=== PATIENT | male | born 1945 | race Caucasian/White ===

== ENCOUNTER 2016-10-15 09:30 | Outpatient (CLI) | payer MEDICARE, OTHER | END 2016-10-15 09:31 | disposition home or self-care (01) | DX: E11.9 Type 2 diabetes mellitus without complications (principal) ==

== ENCOUNTER 2016-10-24 11:40 | Outpatient (CLI) | payer MEDICARE, OTHER | END 2016-10-24 11:41 | disposition home or self-care (01) | DX: E11.9 Type 2 diabetes mellitus without complications (principal); I10 Essential (primary) hypertension; E78.5 Hyperlipidemia, unspecified; K57.92 Diverticulitis of intestine, part unspecified, without perforation or abscess without bleeding; I25.10 Atherosclerotic heart disease of native coronary artery without angina pectoris ==

== ENCOUNTER 2017-04-20 10:26 | Outpatient (CLI) | payer MEDICARE, OTHER ==
[2017-04-20 12:30] LABS: BASOPHILS % (AUTO) 0.4 %; EOSINOPHILS # (AUTO) 0.2 10^3/uL (0.0-0.7); EOSINOPHILS % (AUTO) 2.3 %; HCT - HEMATOCRIT 41.5 % (42.0-52.0); LYMPHOCYTES # (AUTO) 2.3 10^3/uL (1.5-3.5); LYMPHOCYTES % (AUTO) 34.4 %; MEAN CORPUSCULAR HEMOGLOBIN 28.9 pg (27.0-31.0); MEAN CORPUSCULAR HGB CONC 33.7 g/dL (32.0-36.0); MEAN CORPUSCULAR VOLUME 85.9 fL (80.0-94.0); MEAN PLATELET VOLUME 10.1 fL (7.4-11.4); MONOCYTES # (AUTO) 0.9 10^3/uL (0.0-1.0); MONOCYTES % (AUTO) 13.6 %; NEUTROPHILS # (AUTO) 3.3 10^3/uL (1.5-6.6); NEUTROPHILS % (AUTO) 49.3 %; NUCLEATED RED BLOOD CELLS AUTO 0.1 /100WBC; RED BLOOD COUNT 4.83 10^6/uL (4.70-6.10); UNCORRECTED WHITE BLOOD COUNT 6.6 x10^3/uL; WHITE BLOOD COUNT 6.6 x10^3/uL (4.8-10.8)
[2017-04-20 12:58] LABS: ALBUMIN/GLOBULIN RATIO 1.3 (1.0-2.2); BILIRUBIN,TOTAL 0.6 mg/dL (0.2-1.0); BUN - BLOOD UREA NITROGEN 18 mg/dL (6-20); CALCIUM 9.4 mg/dL (8.5-10.3); CARBON DIOXIDE - CO2 22 mmol/L (21-32); CHLORIDE 106 mmol/L (101-111); CHOL/HDL RATIO 4.7 (<5.0); CHOLESTEROL 168 mg/dL; CREATININE 1.1 mg/dL (0.6-1.2); GFR - MDRD 66 (>89); GLUCOSE 132 mg/dL (70-100); HDL CHOLESTEROL 36 mg/dL; LDL/HDL RATIO 2.8 (<3.6); POTASSIUM 4.1 mmol/L (3.5-5.0); SODIUM 136 mmol/L (135-145); TOTAL PROTEIN 7.5 g/dL (6.7-8.2); TRIGLYCERIDES 155 mg/dL; VLDL CHOLESTEROL 31 mg/dL
[2017-04-20 17:44] LABS: HEMOGLOBIN A1C 1.03 g/dL
== END 2017-04-20 10:27 | disposition home or self-care (01) ==
LOC: LAB.WCP 10:26
PROVIDERS: ATTEND Family Medicine
DX: I25.10 Atherosclerotic heart disease of native coronary artery without angina pectoris (principal); E78.5 Hyperlipidemia, unspecified; E11.9 Type 2 diabetes mellitus without complications; I10 Essential (primary) hypertension; H83.09 Labyrinthitis, unspecified ear
CPT/HCPCS: 36415; 80053; 80061; 83036; 85025

== ENCOUNTER 2017-10-01 08:00 | Outpatient (CLI) | payer MEDICARE, OTHER ==
[2017-10-01 13:33] LABS: CREATININE 1.3 mg/dL (0.6-1.2)
== END 2017-10-01 08:01 | disposition home or self-care (01) ==
LOC: LAB.WCP 08:00
PROVIDERS: ATTEND Internal Medicine Gastroenterology
DX: R10.31 Right lower quadrant pain (principal)
CPT/HCPCS: 36415; 82565

== ENCOUNTER 2017-10-02 10:00 | Outpatient (CLI) | payer MEDICARE, OTHER ==
[2017-10-02 13:27] LABS: HB2 TOTAL 14.9 g/dL; HEMOGLOBIN A1C 1.14 g/dL; HEMOGLOBIN A1C % 9.2 % (4.6-6.2)
== END 2017-10-02 10:01 | disposition home or self-care (01) ==
LOC: LAB.WCP 10:00
PROVIDERS: ATTEND Physician Assistant Medical
DX: E11.9 Type 2 diabetes mellitus without complications (principal)
CPT/HCPCS: 36415; 83036

== ENCOUNTER 2018-08-30 08:00 | Outpatient (CLI) | payer MEDICARE, OTHER ==
[2018-08-30 15:09] LABS: BASOPHILS % (AUTO) 0.4 %; EOSINOPHILS # (AUTO) 0.2 10^3/uL (0.0-0.7); EOSINOPHILS % (AUTO) 2.4 %; HGB - HEMOGLOBIN 12.5 g/dL (14.0-18.0); LYMPHOCYTES # (AUTO) 1.8 10^3/uL (1.5-3.5); LYMPHOCYTES % (AUTO) 26.7 %; MEAN CORPUSCULAR HEMOGLOBIN 28.4 pg (27.0-31.0); MEAN CORPUSCULAR HGB CONC 33.7 g/dL (32.0-36.0); MEAN CORPUSCULAR VOLUME 84.1 fL (80.0-94.0); MEAN PLATELET VOLUME 9.6 fL (7.4-11.4); MONOCYTES # (AUTO) 0.7 10^3/uL (0.0-1.0); MONOCYTES % (AUTO) 10.4 %; NEUTROPHILS # (AUTO) 4.1 10^3/uL (1.5-6.6); NEUTROPHILS % (AUTO) 60.1 %; PLT - PLATELET COUNT 262 10^3/uL (130-450); RED BLOOD COUNT 4.41 10^6/uL (4.70-6.10); RED CELL DISTRIBUTION WIDTH 13.9 % (12.0-15.0); WHITE BLOOD COUNT 6.9 x10^3/uL (4.8-10.8)
[2018-08-30 15:13] LABS: ALBUMIN 4.2 g/dL (3.2-5.5); ALBUMIN/GLOBULIN RATIO 1.4 (1.0-2.2); BILIRUBIN,TOTAL 0.5 mg/dL (0.2-1.0); CALCIUM 9.2 mg/dL (8.5-10.3); CREATININE 1.2 mg/dL (0.6-1.2); TOTAL PROTEIN 7.3 g/dL (6.7-8.2)
[2018-08-30 15:20] LABS: HB2 TOTAL 12.7 g/dL; HEMOGLOBIN A1C 0.77 g/dL; HEMOGLOBIN A1C % 7.7 % (4.6-6.2)
== END 2018-08-30 23:59 | disposition home or self-care (01) ==
LOC: LAB.WCP 08:00
PROVIDERS: ATTEND Family Medicine
DX: E11.9 Type 2 diabetes mellitus without complications (principal)
CPT/HCPCS: 36415; 80053; 82043; 83036; 85025

== ENCOUNTER 2018-10-13 08:28 | Outpatient (CLI) | payer MEDICARE, OTHER ==
--- NOTE | 2018-10-13 09:05 | XRAY Report ---
Reason: NECK PX,ACUTE Procedure Date: 10/13/2018 Accession Number: [id number] / [id number] Procedure: WCP - Cervical Spine 2 View CPT Code: FULL RESULT: EXAM: CERVICAL SPINE RADIOGRAPHY EXAM DATE: 10/13/2018 08:42 AM. CLINICAL HISTORY: NECK PX,ACUTE. COMPARISONS: None. TECHNIQUE: 3 views. FINDINGS: Alignment: Reversed cervical lordosis. Minimal anterior listhesis C3 on C4. Alignment otherwise unremarkable. Bones: The cervical vertebral bodies and posterior elements are well seen from the skull base through C7-T1. Mild degenerative vertebral body height loss C5 and C6. Calcification posterior to C5 on the lateral projection may represent an avulsion injury of the spinous process of indeterminate age. Disks: Degenerative disk space narrowing most marked C5-C6 and C6-C7 greater than C4-C5 and C3-C4. Facets: No degenerative disease. Soft Tissues: No prevertebral soft tissue swelling. Status post sternotomy with dehiscent superior sternal suture. IMPRESSION: Multilevel degenerative change cervical spine most marked C5-C6 and C6-C7. Posterior avulsion fracture of a spinous process, likely C5, of uncertain age. Otherwise no potentially acute findings. RADIA
== END 2018-10-13 08:29 | disposition home or self-care (01) ==
LOC: DI.WCP 08:28
PROVIDERS: ATTEND Physician Assistant Medical
DX: M50.322 Other cervical disc degeneration at C5-C6 level (principal)
CPT/HCPCS: 72040

== ENCOUNTER 2018-11-30 08:00 | Outpatient (CLI) | payer MEDICARE, OTHER ==
[2018-11-30 12:56] LABS: HB2 TOTAL 14.9 g/dL; HEMOGLOBIN A1C 0.84 g/dL; HEMOGLOBIN A1C % 7.3 % (4.6-6.2)
[2018-11-30 12:59] LABS: ALBUMIN/GLOBULIN RATIO 1.1 (1.0-2.2); ALKALINE PHOSPHATASE 58 IU/L (42-121); ALT ALANINE AMINOTRANSFERASE 18 IU/L (10-60); AST ASPARTATE AMINOTRANSFERASE 21 IU/L (10-42); BILIRUBIN,TOTAL 0.8 mg/dL (0.2-1.0); BUN - BLOOD UREA NITROGEN 17 mg/dL (6-20); CALCIUM 9.3 mg/dL (8.5-10.3); CARBON DIOXIDE - CO2 25 mmol/L (21-32); CHLORIDE 104 mmol/L (101-111); CHOL/HDL RATIO 3.7 (<5.0); CHOLESTEROL 144 mg/dL; CREATININE 1.2 mg/dL (0.6-1.2); GFR - MDRD 59 (>89); GLUCOSE 138 mg/dL (70-100); HDL CHOLESTEROL 39 mg/dL; LDL CHOLESTEROL,CALCULATED 83 mg/dL; LDL/HDL RATIO 2.1 (<3.6); SODIUM 138 mmol/L (135-145); TOTAL PROTEIN 7.5 g/dL (6.7-8.2); VLDL CHOLESTEROL 22 mg/dL
== END 2018-11-30 23:59 | disposition home or self-care (01) ==
LOC: LAB.WCP 08:00
PROVIDERS: ATTEND Physician Assistant Medical
DX: E11.9 Type 2 diabetes mellitus without complications (principal)
CPT/HCPCS: 36415; 80053; 80061; 83036; 83721

== ENCOUNTER 2019-01-12 11:26 | Outpatient (CLI) | payer MEDICARE, OTHER ==
--- NOTE | 2019-01-12 14:24 | XRAY Report ---
Reason: DEGENERATIVE DISC DISEASE,LUMBAR SPINE,HIP PAIN BI Procedure Date: 01/12/2019 Accession Number: [id number] / [id number] Procedure: XR - Lumbar Spine 2 View CPT Code: FULL RESULT: EXAM: LUMBOSACRAL SPINE RADIOGRAPHY EXAM DATE: 01/12/2019 12:13 PM. CLINICAL HISTORY: Degenerative disk disease, lumbar spine. Bilateral hip pain. COMPARISONS: LUMBAR SPINE 2 VIEW 05/06/2014 5:19 PM. TECHNIQUE: 3 views. FINDINGS: Alignment: Normal. No spondylolisthesis or scoliosis. Bones: Five gcz-jab-ncjbcao lumbar vertebral bodies are present. No fractures or bone lesions. Disks: New moderate degenerative disk space narrowing with mild vacuum disk phenomenon and marginal osteophytosis at L3-L4 compared to the prior exam. Stable degenerative disk space narrowing at L5-S1 with moderate anterior osteophytosis. Moderate osteophytosis without disk space narrowing noted at T11-T12, T12-L1 and L4-L5. Facets: Stable mild facet arthrosis at L4-L5 and L5-S1. Sacroiliac Joints: Unremarkable. Soft Tissues: Normal. The visualized bowel gas pattern is normal. Atherosclerotic deposition within the infrarenal aorta without apparent aneurysmal dilatation. IMPRESSION: Mild interval progression of degenerative disk disease in the lumbar spine as described. No fracture. RADIA
--- NOTE | 2019-01-12 14:24 | XRAY Report ---
Reason: DEGENERATIVE DISC DISEASE,LUMBAR SPINE,HIP PAIN BI Procedure Date: 01/12/2019 Accession Number: [id number] / [id number] Procedure: XR - Hips 2V BILAT CPT Code: FULL RESULT: EXAM: BILATERAL HIP RADIOGRAPHY EXAM DATE: 01/12/2019 12:15 PM. CLINICAL HISTORY: Degenerative disk disease, lumbar spine, hip pain bilaterally. COMPARISON: None. TECHNIQUE: 2 views each. FINDINGS: Bones: Normal. No fractures or bone lesion. Right Hip: Mild asymmetric joint space narrowing. No dislocation or subluxation. No significant osteophytosis. Left Hip: Normal. No dislocation. The hip joint space is preserved. Soft Tissues: Normal. No soft tissue swelling. IMPRESSION: Mild asymmetric joint space narrowing of the right hip compared to the left. No fracture or significant osteophytosis. RADIA
== END 2019-01-12 11:27 | disposition home or self-care (01) ==
LOC: DI 11:26
PROVIDERS: ATTEND Physician Assistant Medical
DX: M51.36 Other intervertebral disc degeneration, lumbar region (principal); M51.37 Other intervertebral disc degeneration, lumbosacral region; M47.9 Spondylosis, unspecified; M16.11 Unilateral primary osteoarthritis, right hip; M25.552 Pain in left hip
CPT/HCPCS: 72100; 73521

== ENCOUNTER 2019-02-10 09:11 | Outpatient (CLI) | payer MEDICARE, OTHER ==
[2019-02-10 14:34] LABS: BUN - BLOOD UREA NITROGEN 22 mg/dL (6-20); CALCIUM 9.1 mg/dL (8.5-10.3); CARBON DIOXIDE - CO2 20 mmol/L (21-32); CHLORIDE 107 mmol/L (101-111); CREATININE 1.2 mg/dL (0.6-1.2); GFR - MDRD 59 (>89); GLUCOSE 154 mg/dL (70-100); SODIUM 138 mmol/L (135-145); URIC ACID 6.7 mg/dL (2.6-7.2)
[2019-02-10 14:43] LABS: RHEUMATOID FACTOR NEGATIVE (Negative)
[2019-02-10 14:59] LABS: CRP - C-REACTIVE PROTEIN < 1.0 mg/dL (0-1.0)
[2019-02-12 12:51] LABS: ANA SCREEN NEGATIVE (NEGATIVE)
== END 2019-02-10 09:12 | disposition home or self-care (01) ==
LOC: LAB.WCP 09:11
PROVIDERS: ATTEND Physician Assistant Medical
DX: M25.50 Pain in unspecified joint (principal)
CPT/HCPCS: 36415; 80048; 84550; 85651; 86038; 86140; 86430

== ENCOUNTER 2019-03-11 11:40 | Outpatient (CLI) | payer MEDICARE, OTHER ==
[2019-03-11 19:03] LABS: CALCIUM 9.4 mg/dL (8.5-10.3)
[2019-03-11 20:03] LABS: HB2 TOTAL 14.6 g/dL; HEMOGLOBIN A1C 0.84 g/dL; HEMOGLOBIN A1C % 7.4 % (4.6-6.2)
== END 2019-03-11 23:59 | disposition home or self-care (01) ==
LOC: LAB.WCP 11:40
PROVIDERS: ATTEND Physician Assistant Medical
DX: E11.9 Type 2 diabetes mellitus without complications (principal)
CPT/HCPCS: 36415; 80048; 83036

== ENCOUNTER 2019-03-28 13:07 | Outpatient (CLI) | payer MEDICARE, OTHER | END 2019-03-28 13:08 | disposition short-term general hospital (02) | LOC: EMS 13:07 | PROVIDERS: ATTEND Surgery | DX: M25.552 Pain in left hip (principal); R11.2 Nausea with vomiting, unspecified | CPT/HCPCS: A0425; A0427; A0888 ==

== ENCOUNTER 2019-04-29 15:43 | Outpatient (CLI) | payer MEDICARE, OTHER | END 2019-04-29 15:44 | disposition short-term general hospital (02) | LOC: EMS 15:43 | PROVIDERS: ATTEND Surgery | DX: M54.5 Low back pain (principal); R53.1 Weakness | CPT/HCPCS: A0425; A0429 ==

== ENCOUNTER 2019-05-30 10:30 | Outpatient (CLI) | payer MEDICARE, OTHER ==
[2019-05-30 12:57] LABS: ALBUMIN 4.2 g/dL (3.2-5.5); ALBUMIN/GLOBULIN RATIO 1.3 (1.0-2.2); ALKALINE PHOSPHATASE 67 IU/L (42-121); ALT ALANINE AMINOTRANSFERASE 17 IU/L (10-60); AST ASPARTATE AMINOTRANSFERASE 22 IU/L (10-42); BILIRUBIN,TOTAL 0.6 mg/dL (0.2-1.0); BUN - BLOOD UREA NITROGEN 17 mg/dL (6-20); CALCIUM 9.4 mg/dL (8.5-10.3); CARBON DIOXIDE - CO2 24 mmol/L (21-32); CHLORIDE 104 mmol/L (101-111); CHOL/HDL RATIO 4.2 (<5.0); CHOLESTEROL 178 mg/dL; GFR - MDRD 73 (>89); GLUCOSE 237 mg/dL (70-100); HDL CHOLESTEROL 42 mg/dL; LDL CHOLESTEROL,CALCULATED 105 mg/dL; LDL/HDL RATIO 2.5 (<3.6); SODIUM 136 mmol/L (135-145); TOTAL PROTEIN 7.4 g/dL (6.7-8.2); VLDL CHOLESTEROL 31 mg/dL
[2019-05-30 13:34] LABS: HB2 TOTAL 13.3 g/dL; HEMOGLOBIN A1C 1.01 g/dL; HEMOGLOBIN A1C % 9.1 % (4.6-6.2)
== END 2019-05-30 23:59 | disposition home or self-care (01) ==
LOC: LAB.WCP 10:30
PROVIDERS: ATTEND Physician Assistant Medical
DX: E11.9 Type 2 diabetes mellitus without complications (principal)
CPT/HCPCS: 36415; 80053; 80061; 83036; 83721

== ENCOUNTER 2019-09-26 12:49 | Outpatient (CLI) | payer MEDICARE, OTHER | END 2019-09-26 12:50 | disposition home or self-care (01) | LOC: RT 12:49 | PROVIDERS: ATTEND Orthopaedic Surgery | DX: Z01.818 Encounter for other preprocedural examination (principal) | CPT/HCPCS: 93005 ==

== ENCOUNTER 2019-09-28 08:00 | Outpatient (CLI) | payer MEDICARE, OTHER ==
[2019-09-28 19:43] LABS: HB2 TOTAL 13.8 g/dL; HEMOGLOBIN A1C 0.97 g/dL; HEMOGLOBIN A1C % 8.6 % (4.6-6.2)
[2019-09-28 20:22] LABS: CALCIUM 8.8 mg/dL (8.5-10.3); CREATININE 1.1 mg/dL (0.6-1.2)
== END 2019-09-28 23:59 | disposition home or self-care (01) ==
LOC: LAB.WCP 08:00
PROVIDERS: ATTEND Physician Assistant Medical
DX: E11.9 Type 2 diabetes mellitus without complications (principal); Z12.5 Encounter for screening for malignant neoplasm of prostate
CPT/HCPCS: 36415; 80048; 83036; G0103; 84153

== ENCOUNTER 2019-12-27 08:00 | Outpatient (CLI) | payer MEDICARE, OTHER ==
[2019-12-27 13:39] LABS: ALBUMIN 4.2 g/dL (3.2-5.5); ALBUMIN/GLOBULIN RATIO 1.4 (1.0-2.2); ALKALINE PHOSPHATASE 64 IU/L (42-121); ALT ALANINE AMINOTRANSFERASE 24 IU/L (10-60); AST ASPARTATE AMINOTRANSFERASE 23 IU/L (10-42); BILIRUBIN,TOTAL 0.8 mg/dL (0.2-1.0); BUN - BLOOD UREA NITROGEN 12 mg/dL (6-20); CALCIUM 9.1 mg/dL (8.5-10.3); CARBON DIOXIDE - CO2 24 mmol/L (21-32); CHLORIDE 107 mmol/L (101-111); CHOL/HDL RATIO 5.5 (<5.0); CHOLESTEROL 191 mg/dL; GLUCOSE 123 mg/dL (70-100); HDL CHOLESTEROL 35 mg/dL; LDL CHOLESTEROL,CALCULATED 129 mg/dL; LDL/HDL RATIO 3.7 (<3.6); SODIUM 138 mmol/L (135-145); TOTAL PROTEIN 7.2 g/dL (6.7-8.2); VLDL CHOLESTEROL 27 mg/dL
[2019-12-27 13:48] LABS: HB2 TOTAL 15.2 g/dL; HEMOGLOBIN A1C 0.98 g/dL
== END 2019-12-27 23:59 | disposition home or self-care (01) ==
LOC: LAB.WCP 08:00
PROVIDERS: ATTEND Physician Assistant Medical
DX: E11.9 Type 2 diabetes mellitus without complications (principal)
CPT/HCPCS: 36415; 80053; 80061; 83036; 83721

== ENCOUNTER 2020-02-24 09:54 | Outpatient (CLI) | payer MEDICARE, OTHER ==
[2020-02-24] MEDS ORDERED: IOVERSOL 320 100 ML VIAL IVP ONE ×2 (10:01→11:36)
[2020-02-24] MEDS ORDERED: IOVERSOL 320 50 ML VIAL ONE (10:01)
[2020-02-24 10:24] LABS: ALBUMIN 4.2 g/dL (3.2-5.5); ALBUMIN/GLOBULIN RATIO 1.3 (1.0-2.2); BILIRUBIN,TOTAL 0.8 mg/dL (0.2-1.0); CALCIUM 9.2 mg/dL (8.5-10.3); CREATININE 1.1 mg/dL (0.6-1.2); TOTAL PROTEIN 7.5 g/dL (6.7-8.2)
[2020-02-24] MEDS ORDERED: IOVERSOL 320 50 ML VIAL PO ONE (11:36)
--- NOTE | 2020-02-24 12:51 | CT Report ---
PROCEDURE: Abdomen/Pelvis W INDICATIONS: ABDOMINAL PAIN, RLQ CONTRAST: IV CONTRAST: Optiray 320 ml: 100 PO CONTRAST: Optiray 320 ml50 TECHNIQUE: After the administration of oral and intravenous contrast, 5 mm thick sections acquired from the diap hragms to the symphysis. 5 mm thick coronal and sagittal reformats were acquired. For radiation dos e reduction, the following was used: automated exposure control, adjustment of mA and/or kV accordin g to patient size. COMPARISON: None. FINDINGS: Image quality: Excellent. ABDOMEN: Lung bases: Lung bases are clear. Heart size is normal. Solid organs: Hepatic steatosis. No focal hepatic lesion identified. Spleen unremarkable. Gallbladder negative. Biliary system is non dilated. Pancreas enhances normally. No adrenal nodules. Kidneys demonstrate normal size and enhancement, without hydronephrosis. Bilateral renal cortical scarring. Peritoneum and bowel: Bowel loops demonstrate normal wall thickness and caliber. No free fluid or a ir. The appendix is not clearly identified however no suspicious inflammatory changes in the right l ower quadrant. Nodes and vessels: No retroperitoneal or mesenteric adenopathy by size criteria. Aorta and inferior vena cava are normal in size. Miscellaneous: No ventral hernias. PELVIS: Genitourinary: Bladder wall thickness is normal. Tiny bilateral fat-containing inguinal hernias. Bones: No suspicious bony lesions. No vertebral body compression fractures. IMPRESSION: No acute process identified. The appendix is not clearly identified however no suspicious inflammator y changes in the right lower quadrant. Hepatic steatosis Additional chronic and incidental findings as above. Reviewed by: Marc Woody MD on 02/24/2020 12:50 PM PDT Approved by: Marc Woody MD on 02/24/2020 12:50 PM PDT Station ID: [id number]
== END 2020-02-24 09:55 | disposition home or self-care (01) ==
LOC: DI 09:54
PROVIDERS: ATTEND Physician Assistant Medical
DX: R10.31 Right lower quadrant pain (principal); K76.0 Fatty (change of) liver, not elsewhere classified
CPT/HCPCS: 36415; 74177; 80053; Q9967

== ENCOUNTER 2020-07-03 08:00 | Outpatient (CLI) | payer MEDICARE, OTHER ==
[2020-07-03 18:04] LABS: ALBUMIN 4.4 g/dL (3.2-5.5); ALBUMIN/GLOBULIN RATIO 1.4 (1.0-2.2); BILIRUBIN,TOTAL 0.9 mg/dL (0.2-1.0); CALCIUM 9.6 mg/dL (8.5-10.3); CREATININE 1.1 mg/dL (0.6-1.2); TOTAL PROTEIN 7.6 g/dL (6.7-8.2)
[2020-07-03 20:11] LABS: HEMOGLOBIN A1c% 8.2 % (4.27-6.07)
== END 2020-07-03 23:59 | disposition home or self-care (01) ==
LOC: LAB.WCP 08:00
PROVIDERS: ATTEND Physician Assistant Medical
DX: E11.9 Type 2 diabetes mellitus without complications (principal)
CPT/HCPCS: 36415; 80053; 83036

== ENCOUNTER 2020-08-06 09:36 | Outpatient (CLI) | payer MEDICARE, OTHER ==
--- NOTE | 2020-08-06 16:31 | XRAY Report ---
PROCEDURE: Knee Standing BILAT INDICATIONS: OSTEOARTHRITIS OF THE KNEE TECHNIQUE: 3 views of the right knee, and 3 views of the left knee. COMPARISON: None. FINDINGS: Bones: No acute fractures or dislocations. There is severe bilateral medial femorotibial compartment narrowing. There are small intercondylar osteophytes, slightly more severe on the right than on the left. No suspicious bony lesions. Soft tissues: No knee joint effusions. No suspicious soft tissue calcification. There are scattere d soft tissue vascular calcifications. Surgical clips are present along the medial aspect of the righ t lower extremity. IMPRESSION: 1. Moderate to severe bilateral knee osteoarthritis. 2. Arterial atherosclerosis. Reviewed by: Samira Pike MD on 08/06/2020 4:30 PM PST Approved by: Samira Pike MD on 08/06/2020 4:30 PM PST Station ID: [id number]
== END 2020-08-06 23:59 | disposition home or self-care (01) ==
LOC: DI.N 09:36
PROVIDERS: ATTEND Physician Assistant
DX: M17.0 Bilateral primary osteoarthritis of knee (principal)

== ENCOUNTER 2020-09-13 09:49 | Outpatient (CLI) | payer MEDICARE, OTHER ==
[2020-09-13 11:54] LABS: BASOPHILS % (AUTO) 0.4 %; EOSINOPHILS # (AUTO) 0.1 10^3/uL (0.0-0.7); EOSINOPHILS % (AUTO) 1.7 %; HGB - HEMOGLOBIN 15.6 g/dL (14.0-18.0); LYMPHOCYTES # (AUTO) 2.3 10^3/uL (1.5-3.5); LYMPHOCYTES % (AUTO) 32.8 %; MEAN CORPUSCULAR HEMOGLOBIN 29.6 pg (27.0-31.0); MEAN CORPUSCULAR HGB CONC 32.6 g/dL (32.0-36.0); MEAN CORPUSCULAR VOLUME 90.9 fL (80.0-94.0); MEAN PLATELET VOLUME 11.5 fL (7.4-11.4); MONOCYTES # (AUTO) 0.8 10^3/uL (0.0-1.0); NEUTROPHILS # (AUTO) 3.7 10^3/uL (1.5-6.6); PLT - PLATELET COUNT 230 10^3/uL (130-450); RED BLOOD COUNT 5.27 10^6/uL (4.70-6.10); RED CELL DISTRIBUTION WIDTH 12.9 % (12.0-15.0)
[2020-09-13 12:24] LABS: HEMOGLOBIN A1c% 8.3 % (4.27-6.07)
[2020-09-13 12:36] LABS: CREATININE,URINE 134.5 mg/dL; MICROALBUM/CREATININE RATIO,UR 1.5 ug/mg (<30.0); MICROALBUMIN,URINE 0.2 mg/dL (0-300.0)
[2020-09-13 12:43] LABS: ALBUMIN 4.3 g/dL (3.2-5.5); ALBUMIN/GLOBULIN RATIO 1.4 (1.0-2.2); ALKALINE PHOSPHATASE 58 IU/L (42-121); ALT ALANINE AMINOTRANSFERASE 30 IU/L (10-60); AST ASPARTATE AMINOTRANSFERASE 25 IU/L (10-42); BILIRUBIN,TOTAL 0.9 mg/dL (0.2-1.0); BUN - BLOOD UREA NITROGEN 15 mg/dL (6-20); CALCIUM 9.3 mg/dL (8.5-10.3); CARBON DIOXIDE - CO2 23 mmol/L (21-32); CHLORIDE 106 mmol/L (101-111); CHOL/HDL RATIO 5.1 (<5.0); CHOLESTEROL 198 mg/dL; CREATININE 1.1 mg/dL (0.6-1.2); GLUCOSE 121 mg/dL (70-100); HDL CHOLESTEROL 39 mg/dL; LDL CHOLESTEROL,CALCULATED 133 mg/dL; LDL/HDL RATIO 3.4 (<3.6); SODIUM 138 mmol/L (135-145); TOTAL PROTEIN 7.3 g/dL (6.7-8.2); VLDL CHOLESTEROL 26 mg/dL
== END 2020-09-13 23:59 | disposition home or self-care (01) ==
LOC: LAB.WCP 09:49
PROVIDERS: ATTEND Physician Assistant Medical
DX: E11.9 Type 2 diabetes mellitus without complications (principal); D64.9 Anemia, unspecified
CPT/HCPCS: 36415; 80053; 80061; 82043; 82570; 83036; 83721; 85025

== ENCOUNTER 2021-01-02 08:00 | Outpatient (CLI) | payer MEDICARE, OTHER ==
[2021-01-02 18:23] LABS: CALCIUM 9.7 mg/dL (8.5-10.3); CREATININE 1.2 mg/dL (0.6-1.2); POTASSIUM 4.4 mmol/L (3.5-5.0)
[2021-01-02 19:20] LABS: ESTIMATED AVERAGE GLUCOSE 183 mg/dL (70-100)
== END 2021-01-02 23:59 | disposition home or self-care (01) ==
LOC: LAB.WCP 08:00
PROVIDERS: ATTEND Physician Assistant Medical
DX: E11.9 Type 2 diabetes mellitus without complications (principal)
CPT/HCPCS: 36415; 80048; 83036

== ENCOUNTER 2021-03-18 09:40 | Outpatient (CLI) | payer MEDICARE, OTHER ==
--- NOTE | 2021-03-18 10:09 | XRAY Report ---
PROCEDURE: Ankle 3 View LT INDICATIONS: ANKLE PAIN TECHNIQUE: 3 views of the ankle were acquired. COMPARISON: None FINDINGS: Bones: No fractures or dislocations. Ankle mortise is normally aligned. Well-defined plantar calcan eal enthesophytes are seen. Mild osteoarthritic changes are seen in tibiotalar and subtalar joints. No suspicious bony lesions. Soft tissues: No tibiotalar joint effusion. Achilles tendon appears normal. Vascular calcification s are noted in anterior and posterior aspect of ankle joint soft tissue. IMPRESSION: No ankle fracture or dislocation. Osteoarthritis in ankle joints. Well-defined plantar c alcaneal enthesophyte. Reviewed by: Melvin Abrams MD on 03/18/2021 10:08 AM PDT Approved by: Melvin Abrams MD on 03/18/2021 10:08 AM PDT Station ID: [id number]
== END 2021-03-18 09:41 | disposition home or self-care (01) ==
LOC: DI 09:40
PROVIDERS: ATTEND Podiatrist
DX: M25.572 Pain in left ankle and joints of left foot (principal); M19.072 Primary osteoarthritis, left ankle and foot; M77.32 Calcaneal spur, left foot

== ENCOUNTER 2021-04-08 10:36 | Outpatient (CLI) | payer MEDICARE, OTHER ==
[2021-04-08 18:45] LABS: ALBUMIN 4.6 g/dL (3.2-5.5); ALBUMIN/GLOBULIN RATIO 1.6 (1.0-2.2); ALKALINE PHOSPHATASE 54 IU/L (42-121); ALT ALANINE AMINOTRANSFERASE 23 IU/L (10-60); AST ASPARTATE AMINOTRANSFERASE 22 IU/L (10-42); BILIRUBIN,TOTAL 0.9 mg/dL (0.2-1.0); BUN - BLOOD UREA NITROGEN 16 mg/dL (6-20); CALCIUM 9.5 mg/dL (8.5-10.3); CARBON DIOXIDE - CO2 23 mmol/L (21-32); CHLORIDE 106 mmol/L (101-111); CHOL/HDL RATIO 4.9 (<5.0); CHOLESTEROL 187 mg/dL; CREATININE 1.1 mg/dL (0.6-1.2); GFR - MDRD 65 (>89); GLUCOSE 153 mg/dL (70-100); HDL CHOLESTEROL 38 mg/dL; LDL CHOLESTEROL,CALCULATED 122 mg/dL; LDL/HDL RATIO 3.2 (<3.6); POTASSIUM 4.4 mmol/L (3.5-5.0); SODIUM 138 mmol/L (135-145); TOTAL PROTEIN 7.4 g/dL (6.7-8.2); TRIGLYCERIDES 135 mg/dL; VLDL CHOLESTEROL 27 mg/dL
[2021-04-08 20:03] LABS: ESTIMATED AVERAGE GLUCOSE 171 mg/dL (70-100); HEMOGLOBIN A1c% 7.6 % (4.27-6.07)
== END 2021-04-08 23:59 | disposition home or self-care (01) ==
LOC: LAB.WCP 10:36
PROVIDERS: ATTEND Physician Assistant Medical
DX: E11.9 Type 2 diabetes mellitus without complications (principal)
CPT/HCPCS: 36415; 80053; 80061; 83036; 83721

== ENCOUNTER 2021-07-12 08:49 | Outpatient (CLI) | payer MEDICARE, OTHER ==
[2021-07-12] MEDS ORDERED: IOVERSOL 320 50 ML VIAL ONE (09:10)
[2021-07-12] MEDS ORDERED: IOVERSOL 320 100 ML VIAL IVP ONE ×2 (09:11→10:23)
[2021-07-12 09:29] LABS: ALBUMIN 4.8 g/dL (3.2-5.5); ALBUMIN/GLOBULIN RATIO 1.7 (1.0-2.2); ALKALINE PHOSPHATASE 48 IU/L (42-121); ALT ALANINE AMINOTRANSFERASE 23 IU/L (10-60); AST ASPARTATE AMINOTRANSFERASE 20 IU/L (10-42); BILIRUBIN,TOTAL 1.2 mg/dL (0.2-1.0); BUN - BLOOD UREA NITROGEN 17 mg/dL (6-20); CALCIUM 9.9 mg/dL (8.5-10.3); CARBON DIOXIDE - CO2 25 mmol/L (21-32); CHLORIDE 102 mmol/L (101-111); CHOL/HDL RATIO 4.4 (<5.0); CHOLESTEROL 177 mg/dL; CREATININE 1.2 mg/dL (0.6-1.2); GFR - MDRD 59 (>89); GLUCOSE 127 mg/dL (70-100); HDL CHOLESTEROL 40 mg/dL; LDL CHOLESTEROL,CALCULATED 114 mg/dL; LDL/HDL RATIO 2.9 (<3.6); POTASSIUM 4.8 mmol/L (3.5-5.0); SODIUM 137 mmol/L (135-145); TOTAL PROTEIN 7.7 g/dL (6.7-8.2); TRIGLYCERIDES 117 mg/dL; VLDL CHOLESTEROL 23 mg/dL
[2021-07-12] MEDS ORDERED: IOVERSOL 320 50 ML VIAL PO ONE (10:24)
--- NOTE | 2021-07-12 12:52 | CT Report ---
PROCEDURE: Abdomen/Pelvis W INDICATIONS: LOWER ABDOMINAL PAIN, ADENOMATOUS COLONIC POLY CONTRAST: IV CONTRAST: Optiray 320 ml: 100 PO CONTRAST: Optiray 320 ml50 TECHNIQUE: After the administration of contrast, 5 mm thick sections acquired from the diaphragms to the sym physis. 5 mm thick coronal and sagittal reformats were acquired. For radiation dose reduction, the following was used: automated exposure control, adjustment of mA and/or kV according to patient size . COMPARISON: None. FINDINGS: Image quality: Excellent. ABDOMEN: Lung bases: Lung bases are clear. Heart size is normal. Solid organs: Liver and spleen are normal in size and enhancement. Hepatic density is slightly decr eased consistent with hepatic steatosis. Gallbladder is normal Biliary system is non dilated. Pancr eas enhances normally. No adrenal nodules. Kidneys demonstrate normal size and enhancement, without hydronephrosis. The kidneys are mildly lobulated. Peritoneum and bowel: Bowel loops demonstrate normal wall thickness and caliber. No free fluid or a ir. The appendix is not distinct visualized, however there are no CT findings to suggest acute append icitis. Nodes and vessels: No retroperitoneal or mesenteric adenopathy by size criteria. Aorta and inferior vena cava are normal in size. Miscellaneous: No ventral hernias. PELVIS: Genitourinary: Bladder wall thickness is normal. Miscellaneous: No inguinal hernias or adenopathy. Bones: No suspicious bony lesions. No vertebral body compression fractures. IMPRESSION: 1. No acute abdominal or pelvic abnormality. 2. Mild hepatic steatosis. Reviewed by: Duc Dillon on 07/12/2021 12:50 PM PST Approved by: Duc Dillon on 07/12/2021 12:50 PM PST Station ID: [id number]
[2021-07-12 15:38] LABS: ESTIMATED AVERAGE GLUCOSE 180 mg/dL (70-100); HEMOGLOBIN A1c% 7.9 % (4.27-6.07)
== END 2021-07-12 08:50 | disposition home or self-care (01) ==
LOC: DI 08:49
PROVIDERS: ATTEND Surgery
DX: R10.30 Lower abdominal pain, unspecified (principal); E11.9 Type 2 diabetes mellitus without complications; K76.0 Fatty (change of) liver, not elsewhere classified
CPT/HCPCS: 36415; 74177; 80053; 80061; 83036; Q9967; 83721

== ENCOUNTER 2021-09-30 08:00 | Outpatient (CLI) | payer MEDICARE, OTHER ==
[2021-10-01 19:03] LABS: CREATININE,URINE 177.4 mg/dL; MICROALBUM/CREATININE RATIO,UR 11.3 ug/mg (<30.0)
== END 2021-09-30 23:59 ==
LOC: LAB.R 08:00
PROVIDERS: ATTEND Physician Assistant Medical
DX: E11.9 Type 2 diabetes mellitus without complications (principal)
CPT/HCPCS: 82043; 82570

== ENCOUNTER 2021-09-30 11:12 | Outpatient (CLI) | payer MEDICARE, OTHER ==
[2021-09-30 18:20] LABS: CALCIUM 9.4 mg/dL (8.5-10.3); CREATININE 1.1 mg/dL (0.6-1.2); POTASSIUM 4.5 mmol/L (3.5-5.0)
[2021-09-30 18:31] LABS: ESTIMATED AVERAGE GLUCOSE 177 mg/dL (70-100); HEMOGLOBIN A1c% 7.8 % (4.27-6.07)
== END 2021-09-30 23:59 | disposition home or self-care (01) ==
LOC: LAB.WCP 11:12
PROVIDERS: ATTEND Physician Assistant Medical
DX: E11.9 Type 2 diabetes mellitus without complications (principal); R10.30 Lower abdominal pain, unspecified; D12.6 Benign neoplasm of colon, unspecified
CPT/HCPCS: 36415; 80048; 82043; 82570; 83036

== ENCOUNTER 2021-10-04 13:25 | Emergency (ER) | payer MEDICARE, OTHER ==
[2021-10-04 13:47] LABS: BASOPHILS % (AUTO) 0.3 %; EOSINOPHILS # (AUTO) 0.1 10^3/uL (0.0-0.7); EOSINOPHILS % (AUTO) 1.5 %; HCT - HEMATOCRIT 43.8 % (42.0-52.0); HGB - HEMOGLOBIN 14.8 g/dL (14.0-18.0); LYMPHOCYTES % (AUTO) 31.5 %; MEAN CORPUSCULAR HEMOGLOBIN 30.9 pg (27.0-31.0); MEAN CORPUSCULAR HGB CONC 33.8 g/dL (32.0-36.0); MEAN CORPUSCULAR VOLUME 91.4 fL (80.0-94.0); MEAN PLATELET VOLUME 10.8 fL (7.4-11.4); MONOCYTES % (AUTO) 10.3 %; NEUTROPHILS # (AUTO) 5.3 10^3/uL (1.5-6.6); NEUTROPHILS % (AUTO) 55.9 %; PLT - PLATELET COUNT 261 10^3/uL (130-450); RED BLOOD COUNT 4.79 10^6/uL (4.70-6.10); RED CELL DISTRIBUTION WIDTH 12.9 % (12.0-15.0); WHITE BLOOD COUNT 9.5 x10^3/uL (4.8-10.8)
[2021-10-04 14:02] LABS: ALBUMIN 4.5 g/dL (3.2-5.5); ALBUMIN/GLOBULIN RATIO 1.3 (1.0-2.2); BILIRUBIN,TOTAL 0.7 mg/dL (0.2-1.0); CALCIUM 9.4 mg/dL (8.5-10.3); CREATININE 1.2 mg/dL (0.6-1.2)
[2021-10-04 14:46] LABS: BILIRUBIN,URINE NEGATIVE (NEGATIVE); GLUCOSE, URINE (UA) NEGATIVE (NEGATIVE); KETONES,URINE (UA) NEGATIVE (NEGATIVE); LEUKOCYTE ESTERASE, URINE NEGATIVE (NEGATIVE); NITRITE,URINE NEGATIVE (NEGATIVE); OCCULT BLOOD,URINE NEGATIVE (NEGATIVE); PH,URINE 5.5 PH (5.0-7.5); PROTEIN,URINE NEGATIVE (NEGATIVE); UROBILINOGEN,URINE 0.2 (NORMAL) E.U./dL (NORMAL)
[2021-10-04 14:51] LABS: CLARITY,URINE CLEAR (CLEAR)
--- NOTE | 2021-10-04 15:10 | ED Physician Documentation ---
History of Present Illness - Stated complaint Stated Complaint: ABD PX - Chief complaint Chief Complaint: Abd Pain - Additonal information Additional information: Absolutely 76-year-old male presents emergency department for evaluation of abo ut 1 month intermittent left flank pain that radiates to his lower abdomen. It is intermittent. But over the last 2 to 3 days has gotten steadily worse. Denies any nausea or vomiting. Denies any bloody stools but does have some intermittent constipated episodes. Also reports that he has to strain to urinate though he does not have dysuria. Has a history of a partial small bowel resection related to a polyp seen on a colonoscopy many years ago. He is scheduled for colonoscopy on the of this month. Review of Systems Constitutional: reports: Reviewed and negative Nose: reports: Reviewed and negative Throat: reports: Reviewed and negative Cardiac: reports: Reviewed and negative Respiratory: reports: Reviewed and negative GI: reports: Abdominal Pain, Constipation. denies: Nausea, Vomiting : reports: Other (occassional difficulty voiding). denies: Dysuria, Frequency Skin: reports: Reviewed and negative Musculoskeletal: reports: Reviewed and negative Neurologic: reports: Reviewed and negative PD PAST MEDICAL HISTORY - Past Medical History Cardiovascular: Hypertension, High cholesterol, Coronary artery disease, [place], Other Respiratory: None Endocrine/Autoimmune: Type 2 diabetes GI: GERD : Kidney stones, Other HEENT: None Psych: None Musculoskeletal: Osteoarthritis, Other Derm: None - Past Surgical History Past Surgical History: Yes General: Colonoscopy Cardiovascular: CABG - Present Medications Home Medications: Ambulatory Orders Medication Instructions Recorded Confirmed Aspirin 81 mg PO DAILY 12/02/13 05/06/18 Clopidogrel [Plavix] 75 mg PO ONCE 12/02/13 05/06/18 Fenofibrate [Lofibra] 160 mg PO DAILY 12/02/13 05/06/18 Gabapentin [Neurontin] 600 mg PO BID 12/02/13 05/06/18 Insulin Glargine,Hum.rec.anlog 50 units SUBQ DAILY 12/02/13 05/06/18 [Lantus Solostar] Metoprolol Succinate 50 mg PO DAILY 12/02/13 05/06/18 Nitroglycerin [Nitrostat] 0.4 mg SL ONCE 12/02/13 05/06/18 lisinopriL [Prinivil] 2.5 mg PO DAILY 12/02/13 05/06/18 Cetirizine [ZyrTEC] 10 mg PO DAILY 05/06/18 05/06/18 Insulin Lispro [Humalog Kwikpen 0 - 25 unit SUBQ TIDWM 05/06/18 05/06/18 U-100] Isosorbide Mononitrate ER [Imdur] 15 mg PO DAILY 05/06/18 05/06/18 Meloxicam 15 mg PO PRN PRN 05/06/18 05/06/18 Ondansetron Odt [Zofran] 4 mg TL Q6H PRN 05/06/18 05/06/18 Pantoprazole Sodium 20 mg PO DAILY 05/06/18 05/06/18 - Allergies Allergies/Adverse Reactions: Allergies Allergy/AdvReac Type Severity Reaction Status Date / Time Pzyriuk-WIY-IoI Reductase Allergy Mild Rash Verified 10/04/21 13:34 Inhibitor [Zlrkmpf-Myl-Bzu Reductase Inhibitor] metformin AdvReac Nausea Verified 10/04/21 13:34 niacin AdvReac body wide Verified 10/04/21 13:34 pain - Social History Does the pt smoke?: No Smoking Status: Never smoker Does the pt drink ETOH?: No Does the pt have substance abuse?: No - Immunizations Immunizations are current?: Yes PD ED PE EXPANDED - General General: Alert, Well developed/nourished - Cardiac Cardiac: Regular Rate, Radial strong equal, Cap refill < 2 sec - Respiratory Respiratory: Clear to ausultation iveth. No: Distress, Labored - Abdomen Abdomen: Normal Bowel sounds, Tender to palpation (tenderness left flank and LLQ; no guarding or rebound) - Back Back: Normal exam. No: Vertebral tenderness, Soft tissue tenderness - Derm Derm: Normal color, Warm and dry. No: Rash - Extremities Extremities: Normal. No: Deformity, Tenderness - Neuro Neuro: Alert and Oriented X 3, CNII-XII intact - GCS Eye Opening: Spontaneous Verbal: Oriented Results - Vitals Vitals: Vital Signs - 24 hr 10/04/21 10/04/21 13:31 15:34 Temperature 36.8 C 36.1 C L Heart Rate 80 70 Respiratory 18 16 Rate Blood Pressure 150/90 H 128/76 O2 Saturation 99 95 Oxygen O2 Source Room air - Labs Labs: Laboratory Tests 10/04/21 10/04/21 10/04/21 13:43 13:43 13:45 WBC 9.5 RBC 4.79 Hgb 14.8 Hct 43.8 MCV 91.4 MCH 30.9 MCHC 33.8 RDW 12.9 Plt Count 261 MPV 10.8 Neut # (Auto) 5.3 Lymph # (Auto) 3.0 Mcdonough # (Auto) 1.0 Eos # (Auto) 0.1 Baso # (Auto) 0.0 Absolute Nucleated RBC 0.00 Nucleated RBC % 0.0 Sodium 136 Potassium 4.0 Chloride 101 Carbon Dioxide 26 Anion Gap 9.0 BUN 16 Creatinine 1.2 Estimated GFR (MDRD) 59 L Glucose 127 H Calcium 9.4 Total Bilirubin 0.7 AST 21 ALT 22 Alkaline Phosphatase 51 Total Protein 8.0 Albumin 4.5 Globulin 3.5 Albumin/Globulin Ratio 1.3 Lipase 20 L Urine Color YELLOW Urine Clarity CLEAR Urine pH 5.5 Ur Specific [place] 1.025 Urine Protein NEGATIVE Urine Glucose (UA) NEGATIVE Urine Ketones NEGATIVE Urine Occult Blood NEGATIVE Urine Nitrite NEGATIVE Urine Bilirubin NEGATIVE Urine Urobilinogen 0.2 (NORMAL) Ur Leukocyte Esterase NEGATIVE Ur Microscopic Review NOT INDICATED Urine Culture Comments NOT INDICATED - Rads (name of study) CT abdomen Radiology: Final report received (No acute CT findings of the abdomen or pelvis. Hepatic fatty infiltration, calcific atherosclerosis.) PD MEDICAL DECISION MAKING - ED course Complexity details: reviewed results, re-evaluated patient, d/w patient ED course: [id number] male presents emergency department for evaluation of intermittent left flank pain that radiates to the left lower quadrant. Began about 1 month ago but worse over the last 2 to 3 days. He is scheduled for a screening colonoscopy on the of this month. He declined pain medicine here in the emergency department. On exam he did have tenderness in the left flank and left lower quadrant without any guarding or rebound. His screening labs without acute worrisome findings. His CT of the abdomen did not show an obvious source for the pain. We do note hepatic steatosis as well as calcific atherosclerosis. Findings were discussed with the patient. He is to continue follow-up with his colonoscopy scheduled for the of this month. Emergent return precautions were discussed for fevers, black or bloody stools worsening pain or uncontrolled vomiting. Departure - Departure Disposition: 01 Home, Self Care Clinical Impression: Colicky LLQ abdominal pain Condition: Stable Record reviewed to determine appropriate education?: Yes Instructions: ED Abdominal Pain Cause Unkn Male Ch Comments: Dylon you are seen in the emergency department today for some pain on the left side of your belly that began about a month ago. Your screening labs are all essentially normal. The CT of your abdomen was done to evaluate for possible causes such as kidney stones or diverticulitis. There were no abnormal findings on the CT scan. We do make an incidental note of a fatty liver. This is a common finding. Should be discussed with your primary care doctor. In general I recommend that you continue to take the Tylenol or ibuprofen at home. Continue to obtain your colonoscopy scheduled for the of this month. If at any point you develop fevers, have suddenly severe or different abdominal pain, uncontrolled vomiting or black or bloody stools and please return i mmediately to the ER for second evaluation.
[2021-10-04] MEDS ORDERED: IOVERSOL 320 100 ML VIAL IVP ONE ×2 (15:14→15:26)
--- NOTE | 2021-10-04 15:49 | CT Report ---
PROCEDURE: CT abdomen and pelvis with contrast INDICATIONS: Left flank; LLQ abd pain X 1 month CONTRAST: IV CONTRAST: Optiray 320 ml: 100 PO CONTRAST: *NO PO CONTRAST TECHNIQUE: After the administration of contrast, 5 mm thick sections acquired from the diaphragms to the sym physis. 5 mm thick coronal and sagittal reformats were acquired. For radiation dose reduction, the following was used: automated exposure control, adjustment of mA and/or kV according to patient size . COMPARISON: 07/12/2021 FINDINGS: Image quality: Excellent. ABDOMEN: Lung bases: Lung bases are clear. Heart size is normal. Dense coronary artery vascular calcificati on present. Solid organs: Liver and spleen are normal in size and enhancement. Diffusely decreased hepatic atte nuation noted. Gallbladder unremarkable. Biliary system is non dilated. Pancreas enhances normally. No adrenal nodules. Kidneys demonstrate normal size and enhancement, without hydronephrosis. Peritoneum and bowel: Bowel loops demonstrate normal wall thickness and caliber. No free fluid or a ir. Prior right colon anastomosis noted. Appendectomy. Nodes and vessels: No retroperitoneal or mesenteric adenopathy by size criteria. Aorta and inferior vena cava are normal in size. Atherosclerotic calcification of the abdominal aorta without evidence of aneurysm. Miscellaneous: No ventral hernias. PELVIS: Genitourinary: Bladder wall thickness is normal. Miscellaneous: No inguinal hernias or adenopathy. Bones: No suspicious bony lesions. No vertebral body compression fractures. Multilevel degenerativ e disc disease and arthropathy lower lumbar spine results in moderate central stenosis at L3-4 and L4 -5 IMPRESSION: 1. No acute CT findings in the abdomen or pelvis and 2. Hepatic fatty infiltration, calcific atherosclerosis Reviewed by: Inderjit Kincaid MD on 10/04/2021 2:47 PM AKST Approved by: Inderjit Kincaid MD on 10/04/2021 2:47 PM AKST Station ID: [id number]
[2021-10-04 16:13] VITALS: BP 136/80
== END 2021-10-04 16:13 | disposition home or self-care (01) ==
LOC: ED 13:25
DX: R10.30 Lower abdominal pain, unspecified (principal); R10.84 Generalized abdominal pain; I10 Essential (primary) hypertension; E11.9 Type 2 diabetes mellitus without complications; Z79.4 Long term (current) use of insulin
CPT/HCPCS: 36415; 74177; 80053; 81003; 83690; 85025; 99282; 99284; Q9967; 81001; 87086

== ENCOUNTER 2021-10-22 06:24 | Day surgery (SDC) | payer MEDICARE, OTHER ==
[2021-10-22] MEDS ORDERED: LACTATED RINGERS 1,000 ML IV ONE ×2 (06:54→08:48)
--- NOTE | 2021-10-22 07:09 | ANESTHESIA ---
Pre-Anesthesia VS, & Labs - Diagnosis history of polyps - Procedure colonoscopy Vital Signs: Temp Pulse Resp BP Pulse Ox 36.6 C 87 24 152/75 H 96 10/22/21 06:46 10/22/21 06:46 10/22/21 06:46 10/22/21 06:46 10/22/21 06:46 Height: 5 ft 11 in Weight (kg): 118.6 kg Body Mass Index: 36.4 BMI Classification: Obese - NPO >8 hours - Lab Results Current Lab Results: Laboratory Tests 10/22/21 06:48: POC Whole Bld Glucose 136 H Home Medications and Allergies Home Medications: Ambulatory Orders Diclofenac Sodium [Voltaren Arthritis Pain] 2 - 4 gm TP QID PRN 10/11/21 Fluticasone [Flonase] 1 sprays KIRA BID PRN 10/11/21 Glimepiride [Amaryl] 2 mg PO DAILY 10/11/21 Aspirin 81 mg PO DAILY 12/02/13 Clopidogrel [Plavix] 75 mg PO DAILY 12/02/13 Fenofibrate [Lofibra] 160 mg PO DAILY 12/02/13 Gabapentin [Neurontin] 600 mg PO BID 12/02/13 Insulin Glargine,Hum.rec.anlog [Lantus Solostar] 50 units SUBQ DAILY 12/02/13 Nitroglycerin [Nitrostat] 0.4 mg SL ONCE 12/02/13 lisinopriL [Prinivil] 2.5 mg PO DAILY 12/02/13 Cetirizine [ZyrTEC] 10 mg PO DAILY 05/06/18 Insulin Lispro [Humalog Kwikpen U-100] 0 - 25 unit SUBQ TIDWM 05/06/18 Isosorbide Mononitrate ER [Imdur] 15 mg PO DAILY 05/06/18 Diclofenac Sodium [Voltaren Arthritis Pain] 2 - 4 gm TP QID PRN 10/11/21 Fluticasone [Flonase] 1 sprays KIRA BID PRN 10/11/21 Glimepiride [Amaryl] 2 mg PO DAILY 10/11/21 Allergies/Adverse Reactions: Allergies Allergy/AdvReac Type Severity Reaction Status Date / Time Ihltfxp-OIF-OuW Reductase Allergy Mild Rash Verified 10/04/21 13:34 Inhibitor [Wvhkzvt-Omy-Ceb Reductase Inhibitor] evolocumab AdvReac abdominal Verified 10/11/21 13:03 [From David Lemus] pain metformin AdvReac Nausea Verified 10/04/21 13:34 niacin AdvReac body wide Verified 10/04/21 13:34 pain Anes History & Medical History - Anesthetic History Anesthesia Complications: reports: No previous complications - Medical History Cardiovascular: reports: Hypertension, High cholesterol, Coronary artery disease, [place] Pulmonary: reports: None Gastrointestinal: reports: GERD, Colon polyps Urinary: reports: Kidney stones Musculoskeletal: reports: Osteoarthritis, Other Endocrine/Autoimmune: reports: Type 2 diabetes Blood Disorders: reports: None Skin: reports: None Smoking Status: Never smoker History of Cancer?: No - Surgical History General: reports: Appendectomy, Bowel surgery, Colonoscopy, Other Eyes Ears Nose Throat (EENT): reports: Tonsil/Adenoidectomy Cardiothoracic: reports: CABG, Coronary stent Exam General: Alert, Oriented x3 Dental: WNL, Dentures full Upper Mouth Opening: Can't Open Mouth Neck Mobility: Normal Mallampati classification: III Respiratory: Lungs clear Cardiovascular: Regular rate Plan Anesthesia Type: Total IV Consent for Procedure(s) Verified and Reviewed: Yes Code Status: Attempt Resuscitation ASA classification: 3-Severe systemic disease Is this case an emergency?: No
[2021-10-22] MEDS ORDERED: PROPOFOL 500 MG/50 ML 500 MG/50 ML VIAL ONE ×2 (08:53)
--- NOTE | 2021-10-22 09:21 | ANESTHESIA POST OP EVALUATION ---
Anesthesia Post Eval - Post Anesthesia Eval Vitals: Last Vital Signs Temp 36.6 C 10/22/21 09:06 Pulse 64 10/22/21 09:06 Resp 15 10/22/21 09:06 BP 101/62 10/22/21 09:06 Pulse Ox 97 10/22/21 09:06 CV Function Including HR & BP: Stable Pain Control: Satisfactory Nausea & Vomiting: Negative Mental Status: Baseline Respiratory Status: Airway Patent Hydration Status: Satisfactory Anesthesia Complications: None
[2021-10-22 09:29] VITALS: BP 122/74
== END 2021-10-22 06:25 | disposition home or self-care (01) ==
LOC: SDS 06:24
PROVIDERS: ATTEND Surgery
PROC: 0DBL8ZZ Excision of Transverse Colon, Via Natural or Artificial Opening Endoscopic (ICD-10-PCS; 2021-10-22)
PROC: 0DBL8ZZ Excision of Transverse Colon, Via Natural or Artificial Opening Endoscopic (ICD-10-PCS; 2021-10-22)
PROC: 0DBM8ZZ Excision of Descending Colon, Via Natural or Artificial Opening Endoscopic (ICD-10-PCS; principal; 2021-10-22 07:30)
DX: R10.9 Unspecified abdominal pain (principal); D12.3 Benign neoplasm of transverse colon; D12.4 Benign neoplasm of descending colon; K64.8 Other hemorrhoids; K57.30 Diverticulosis of large intestine without perforation or abscess without bleeding; E66.9 Obesity, unspecified; Z68.36 Body mass index [BMI] 36.0-36.9, adult; Z79.4 Long term (current) use of insulin; J44.9 Chronic obstructive pulmonary disease, unspecified; E11.40 Type 2 diabetes mellitus with diabetic neuropathy, unspecified; I25.10 Atherosclerotic heart disease of native coronary artery without angina pectoris; I25.2 Old myocardial infarction
CPT/HCPCS: 45380; 45385; J7120

== ENCOUNTER 2022-01-02 08:51 | Outpatient (CLI) | payer MEDICARE, OTHER ==
[2022-01-02 13:10] LABS: BASOPHILS % (AUTO) 0.4 %; EOSINOPHILS # (AUTO) 0.1 10^3/uL (0.0-0.7); EOSINOPHILS % (AUTO) 1.7 %; HGB - HEMOGLOBIN 15.4 g/dL (14.0-18.0); LYMPHOCYTES % (AUTO) 24.8 %; MEAN CORPUSCULAR HEMOGLOBIN 30.3 pg (27.0-31.0); MEAN CORPUSCULAR HGB CONC 33.5 g/dL (32.0-36.0); MEAN CORPUSCULAR VOLUME 90.4 fL (80.0-94.0); MEAN PLATELET VOLUME 11.9 fL (7.4-11.4); MONOCYTES # (AUTO) 0.9 10^3/uL (0.0-1.0); MONOCYTES % (AUTO) 10.7 %; NEUTROPHILS # (AUTO) 5.1 10^3/uL (1.5-6.6); NEUTROPHILS % (AUTO) 62.2 %; PLT - PLATELET COUNT 224 10^3/uL (130-450); RED BLOOD COUNT 5.09 10^6/uL (4.70-6.10); RED CELL DISTRIBUTION WIDTH 12.8 % (12.0-15.0); WHITE BLOOD COUNT 8.2 x10^3/uL (4.8-10.8)
[2022-01-02 13:54] LABS: THYROID STIMULATING HORMONE 2.21 uIU/mL (0.34-5.60)
[2022-01-02 13:56] LABS: ALBUMIN 4.5 g/dL (3.2-5.5); ALBUMIN/GLOBULIN RATIO 1.5 (1.0-2.2); ALKALINE PHOSPHATASE 51 IU/L (42-121); ALT ALANINE AMINOTRANSFERASE 20 IU/L (10-60); AST ASPARTATE AMINOTRANSFERASE 19 IU/L (10-42); BILIRUBIN,TOTAL 0.8 mg/dL (0.2-1.0); BUN - BLOOD UREA NITROGEN 15 mg/dL (6-20); CALCIUM 9.6 mg/dL (8.5-10.3); CARBON DIOXIDE - CO2 24 mmol/L (21-32); CHLORIDE 103 mmol/L (101-111); CHOL/HDL RATIO 4.3 (<5.0); CHOLESTEROL 176 mg/dL; CREATININE 1.1 mg/dL (0.6-1.2); GFR - MDRD 65 (>89); GLUCOSE 122 mg/dL (70-100); HDL CHOLESTEROL 41 mg/dL; LDL CHOLESTEROL,CALCULATED 112 mg/dL; LDL/HDL RATIO 2.7 (<3.6); POTASSIUM 4.5 mmol/L (3.5-5.0); SODIUM 137 mmol/L (135-145); TOTAL PROTEIN 7.6 g/dL (6.7-8.2); TRIGLYCERIDES 114 mg/dL; VLDL CHOLESTEROL 23 mg/dL
[2022-01-02 14:01] LABS: FERRITIN 82.2 ng/mL (23.9-336.2)
[2022-01-02 14:23] LABS: ESTIMATED AVERAGE GLUCOSE 180 mg/dL (70-100); HEMOGLOBIN A1c% 7.9 % (4.27-6.07)
== END 2022-01-02 08:52 | disposition home or self-care (01) ==
LOC: LAB.N 08:51
PROVIDERS: ATTEND Physician Assistant Medical
DX: E11.9 Type 2 diabetes mellitus without complications (principal); R53.83 Other fatigue; D64.9 Anemia, unspecified
CPT/HCPCS: 36415; 80053; 80061; 82306; 82607; 82728; 83036; 83721; 84443; 85025

== ENCOUNTER 2022-07-04 11:14 | Outpatient (CLI) | payer MEDICARE, OTHER ==
[2022-07-04 18:05] LABS: CALCIUM 9.6 mg/dL (8.5-10.3); CREATININE 1.1 mg/dL (0.6-1.2); POTASSIUM 4.3 mmol/L (3.5-5.0)
[2022-07-04 18:15] LABS: ESTIMATED AVERAGE GLUCOSE 212 mg/dL (70-100)
== END 2022-07-04 11:15 | disposition home or self-care (01) ==
LOC: LAB.N 11:14
PROVIDERS: ATTEND Physician Assistant Medical
DX: E11.9 Type 2 diabetes mellitus without complications (principal)
CPT/HCPCS: 36415; 80048; 83036

== ENCOUNTER 2022-10-03 09:53 | Outpatient (CLI) | payer MEDICARE, OTHER ==
[2022-10-03 12:21] LABS: ALBUMIN 4.2 g/dL (3.2-5.5); ALBUMIN/GLOBULIN RATIO 1.4 (1.0-2.2); ALKALINE PHOSPHATASE 52 IU/L (42-121); ALT ALANINE AMINOTRANSFERASE 22 IU/L (10-60); AST ASPARTATE AMINOTRANSFERASE 24 IU/L (10-42); BILIRUBIN,TOTAL 0.9 mg/dL (0.2-1.0); BUN - BLOOD UREA NITROGEN 14 mg/dL (6-20); CALCIUM 9.4 mg/dL (8.5-10.3); CARBON DIOXIDE - CO2 23 mmol/L (21-32); CHLORIDE 106 mmol/L (101-111); CHOL/HDL RATIO 3.8 (<5.0); CHOLESTEROL 157 mg/dL; GFR - MDRD 72 (>89); GLUCOSE 123 mg/dL (70-100); HDL CHOLESTEROL 41 mg/dL; LDL CHOLESTEROL,CALCULATED 96 mg/dL; LDL/HDL RATIO 2.3 (<3.6); POTASSIUM 4.3 mmol/L (3.5-5.0); SODIUM 140 mmol/L (135-145); TOTAL PROTEIN 7.3 g/dL (6.7-8.2); TRIGLYCERIDES 102 mg/dL; VLDL CHOLESTEROL 20 mg/dL
[2022-10-03 12:26] LABS: ESTIMATED AVERAGE GLUCOSE 197 mg/dL (70-100); HEMOGLOBIN A1c% 8.5 % (4.27-6.07)
== END 2022-10-03 09:54 | disposition home or self-care (01) ==
LOC: LAB.N 09:53
PROVIDERS: ATTEND Physician Assistant Medical
DX: E11.9 Type 2 diabetes mellitus without complications (principal)
CPT/HCPCS: 36415; 80053; 80061; 83036; 83721

== ENCOUNTER 2022-12-04 14:09 | Outpatient (CLI) | payer MEDICARE, OTHER ==
[2022-12-04] MEDS ORDERED: iohexoL-300 100 ML VIAL ONE (14:17)
[2022-12-04 14:39] LABS: CREATININE 1.3 mg/dL (0.6-1.2)
[2022-12-04] MEDS ORDERED: iohexoL-300 100 ML VIAL IVP ONE (16:32)
--- NOTE | 2022-12-05 07:07 | CT Report ---
PROCEDURE: ANGIO NECK W INDICATIONS: NECK PAIN,HEADACE, VERTEBRAL/BASILAR ARTERY OCCLUS CONTRAST: 80ml Omnipaque 300 TECHNIQUE: After the administration of intravenous contrast, 1.5 mm axial sections acquired from the aortic arch to the [place] of [place]. Coronal 3-D maximum intensity projection (MIP) and/or volume rendering ref ormats were then performed. For radiation dose reduction, the following was used: automated exposur e control, adjustment of mA and/or kV according to patient size. COMPARISON: Correlation is made with the accompanying head CT angiogram, 12/04/2022. FINDINGS: Image quality: Excellent. Carotid system: The great vessels demonstrate a conventional anatomy as they arise from the aortic a rch. The origins of the common carotid arteries appear patent. The common carotid arteries demonstr ate normal calibers and courses. The bifurcation regions demonstrate atherosclerotic irregularity an d calcification. There is approximately 50% narrowing seen involving the right proximal internal woods tid artery. No hemodynamically significant stenosis can be seen involving the left proximal internal carotid artery. The more distal internal carotid arteries demonstrate normal course and caliber. Posterior circulation: There is approximately 50% narrowing seen involving the origin of the left lenny tebral artery. There is at least 50% narrowing seen involving the mid left V3 segment, as on series 2 image 146. There is right 60% narrowing involving the origin of the right vertebral artery. There is relatively poor flow seen throughout the right vertebral artery. As seen on the accompanying head CT angiogram, there is near complete occlusion of both vertebral art eries. The basilar artery is patent, but diminutive. Soft tissues: Visualized neck soft tissues demonstrate no suspicious abnormalities. The thyroid is normal in size and there are no incidental findings. Bones: No suspicious bony lesions. Visualized cervical spine appears normally aligned. At least m oderate cervical spine degenerative changes are seen, which are worst inferiorly. Sternotomy changes are noted. 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 The basilar artery is patent, but diminutive. There is approximately 50% narrowing seen involving the origins of both vertebral arteries. Poor flow seen throughout the right vertebral artery. There is approximately 50% narrowing seen involving the left mid and V3 segment. Approximately 50% narrowing can be seen involving the origin of the right vertebral artery. Additional findings: At least moderate lower cervical spine degenerative changes Sternotomy The estimate of stenosis included in the report of the imaging study was calculated using the NASCET method Reviewed by: Clemente Soto MD on 12/04/2022 2:58 PM [facility] Approved by: Clemente Soto MD on 12/04/2022 2:58 PM [facility] Station ID: [id number]
--- NOTE | 2022-12-05 07:07 | CT Report ---
PROCEDURE: ANGIO HEAD W/WO INDICATIONS: NECK PAIN,HEADACE, VERTEBRAL/BASILAR ARTERY OCCLUS CONTRAST: 80ml Omnipaque 300 TECHNIQUE: Precontrast 4.5 mm thick angled axial sections acquired from the foramen magnum to the vertex. Afte r the administration of intravenous contrast, 1 mm thick sections acquired through the [place] of [place] is. Postcontrast 4.5 mm thick sections then re-acquired from the foramen magnum to the vertex. 3-di mensional jqyntbr-axuheecxe-xthsksansf (MIP) and/or volume rendering reformats were acquired of the c entral intracranial vasculature. For radiation dose reduction, the following was used: automated ex posure control, adjustment of mA and/or kV according to patient size. COMPARISON: Correlation is made with the accompanying neck CT angiogram, 12/04/2022. FINDINGS: Image quality: Excellent. Anterior circulation: Intracranial internal carotid arteries are normal in size and flow. The flow within the paired anterior cerebral arteries is normal and symmetric. The flow within the middle cer ebral arteries is normal and symmetric. The anterior communicating artery is seen. No aneurysms are seen. Posterior circulation: Focal atelectatic calcification can be seen involving the V4 segments. There is likely occlusion seen of both C4 segments. The basilar artery is relatively diminutive. Note is made of a prominent left posterior communicating artery, with a diminutive left P1 segment. T his is attributed to a type origin of the left posterior cerebral artery, which is considered t o be a developmental variant of typically no clinical consequence. Flow within the posterior cerebral arteries is normal and symmetric. No aneurysms are seen. CSF spaces: Ventricles are normal in size and shape. Basal cisterns are patent. No extra-axial flu id collections. Brain: No midline shift. No intracranial bleeds or masses. Benavidez-white matter interface appears int act. Skull and face: Calvarium and facial bones appear intact, without suspicious lesions. Sinuses: Visualized sinuses and mastoids are clear. IMPRESSION: There is near complete occlusion of the V4 segments on both sides. The basilar artery is patent, but diminutive. The posterior circulation appears largely fed via a hypertrophied left posterior communicating artery . Reviewed by: Clemente Soto MD on 12/04/2022 2:54 PM [facility] Approved by: Clemente Soto MD on 12/04/2022 2:54 PM [facility] Station ID: [id number]
== END 2022-12-04 14:10 | disposition home or self-care (01) ==
LOC: LAB 14:09
PROVIDERS: ATTEND Registered Nurse
DX: R51.9 Headache, unspecified (principal); M54.2 Cervicalgia; I65.03 Occlusion and stenosis of bilateral vertebral arteries
CPT/HCPCS: 36415; 70496; 70498; 82565; Q9967

== ENCOUNTER 2022-12-27 14:04 | Emergency (ER) | payer MEDICARE, OTHER ==
[2022-12-27] MEDS ORDERED: METOPROLOL 5 MG/5 ML VIAL IVP STA ×2 (14:23→15:12)
[2022-12-27] MEDS ORDERED: ASPIRIN CHEW 81 MG TABLET PO STA (14:24)
--- NOTE | 2022-12-27 14:26 | ED Physician Documentation ---
HPI CHEST PAIN - Stated complaint Stated Complaint: CHEST PX - Chief complaint Chief Complaint: Cardiac - History obtained from History obtained from: Patient - Additional information Additional information: 77-year-old gentleman with history of coronary disease. He had a four-vessel bypass in 1987 and about 15 years ago had 4 stents. Since then has had nothing interventional. About 4 hours ago while doing some weeding in the yard he developed chest pain radiating to the right a little bit. It does not radiate to the back or neck. It is somewhat intermittent. He tried 2 nitroglycerin wh ich were not effective. Pain waxes and wanes. When it is bad he is short of breath. Not sweaty or nauseous. His circular clerk is Dr. Lambert associated with [facility]. PD PAST MEDICAL HISTORY - Past Medical History Cardiovascular: Hypertension, High cholesterol, Coronary artery disease, CA, Other Respiratory: None Endocrine/Autoimmune: Type 2 diabetes GI: GERD : Kidney stones, Other HEENT: None Psych: None Musculoskeletal: Osteoarthritis, Other Derm: None - Past Surgical History Past Surgical History: Yes General: Colonoscopy Cardiovascular: CABG HEENT: Tonsil/Adenoidectomy - Present Medications Home Medications: Ambulatory Orders Medication Instructions Recorded Confirmed Aspirin 81 mg PO DAILY 12/02/13 12/27/22 Clopidogrel [Plavix] 75 mg PO DAILY 12/02/13 12/27/22 Fenofibrate [Lofibra] 160 mg PO DAILY 12/02/13 12/27/22 Gabapentin [Neurontin] 600 mg PO BID 12/02/13 12/27/22 Insulin Glargine,Hum.rec.anlog 60 units SUBQ DAILY 12/02/13 12/27/22 [Lantus Solostar] Nitroglycerin [Nitrostat] 0.4 mg SL ONCE 12/02/13 12/27/22 lisinopriL [Prinivil] 2.5 mg PO DAILY 12/02/13 12/27/22 Cetirizine [ZyrTEC] 10 mg PO DAILY 05/06/18 12/27/22 Insulin Lispro [Humalog Kwikpen 8 unit SUBQ BID 05/06/18 12/27/22 U-100] Isosorbide Mononitrate ER [Imdur] 30 mg PO DAILY 05/06/18 12/27/22 Fluticasone [Flonase] 1 sprays KIRA BID PRN 10/11/21 12/27/22 - Allergies Allergies/Adverse Reactions: Allergies Allergy/AdvReac Type Severity Reaction Status Date / Time Kqmfsao-ARW-NiY Reductase Allergy Mild Rash Verified 10/04/21 13:34 Inhibitor [Lnrhvym-Wso-Ozy Reductase Inhibitor] evolocumab AdvReac abdominal Verified 10/11/21 13:03 [From Repatha SureClick] pain metformin AdvReac Nausea Verified 10/04/21 13:34 niacin AdvReac body wide Verified 10/04/21 13:34 pain - Social History Does the pt smoke?: No Smoking Status: Never smoker Does the pt drink ETOH?: No Does the pt have substance abuse?: No - Immunizations Immunizations are current?: Yes PD ED PE NORMAL - Vitals Vital signs reviewed: Yes (Moderate resting tachycardia) - General General: Alert and oriented X 3, No acute distress - HEENT HEENT: PERRL, EOMI - Neck Neck: Supple, no meningeal sign, No bony TTP - Cardiac Cardiac: Other (Tachycardic, regular, no murmur) - Respiratory Respiratory: No respiratory distress, Clear bilaterally - Abdomen Abdomen: Non tender - Extremities Extremities: No edema, No calf tenderness / cord - Neuro Neuro: Alert and oriented X 3, Normal speech Results - Vitals Vitals: Vital Signs - 24 hr 12/27/22 12/27/22 12/27/22 14:06 14:42 15:10 Temperature 36.5 C Heart Rate 120 H 92 86 Respiratory 18 18 19 Rate Blood Pressure 158/82 H 154/96 H 136/82 H O2 Saturation 96 96 94 12/27/22 12/27/22 12/27/22 15:30 16:00 16:56 Temperature Heart Rate 80 78 78 Respiratory 18 15 20 Rate Blood Pressure 137/107 H 132/75 H 131/86 H O2 Saturation 96 97 96 12/27/22 17:29 Temperature 36.9 C Heart Rate 81 Respiratory 20 Rate Blood Pressure 145/81 H O2 Saturation 100 Oxygen O2 Source Room air - EKG (time done) 1407 EKG releavant findings:: EKG personally interpreted by author of this note. Relevant findings are: Rate: Rate (enter#) (114) Rhythm: Sinus tachycardia QRS: LVH Ischemia: Q waves (Anterior). No: ST elevation c/w ischemia Compare to prior EKG: Changed from prior EKG (Compared with September 26, 2019, increased LVH and slightly wider QRS without new Q waves or ST-T changes) Computer interpretation: Agree with computer - Labs Labs: Laboratory Tests 12/27/22 12/27/22 12/27/22 14:32 14:32 14:32 WBC 8.3 RBC 4.78 Hgb 14.3 Hct 43.1 MCV 90.2 MCH 29.9 MCHC 33.2 RDW 12.8 Plt Count 201 MPV 11.1 Neut # (Auto) 5.7 Lymph # (Auto) 1.7 [place] # (Auto) 0.8 Eos # (Auto) 0.1 Baso # (Auto) 0.0 Absolute Nucleated RBC 0.00 Nucleated RBC % 0.0 Sodium 135 Potassium 4.2 Chloride 103 Carbon Dioxide 22 Anion Gap 10.0 BUN 17 Creatinine 1.1 Estimated GFR (MDRD) 65 L Glucose 376 H POC Whole Bld Glucose Calcium 9.2 Total Bilirubin 0.8 AST 20 ALT 20 Alkaline Phosphatase 57 Troponin I High Sens 100.9 H* Total Protein 6.8 Albumin 3.9 Globulin 2.9 Albumin/Globulin Ratio 1.3 Lipase 25 SARS-CoV-2 (PCR) 12/27/22 12/27/22 15:30 17:05 WBC RBC Hgb Hct MCV MCH MCHC RDW Plt Count MPV Neut # (Auto) Lymph # (Auto) [place] # (Auto) Eos # (Auto) Baso # (Auto) Absolute Nucleated RBC Nucleated RBC % Sodium Potassium Chloride Carbon Dioxide Anion Gap BUN Creatinine Estimated GFR (MDRD) Glucose POC Whole Bld Glucose 155 H Calcium Total Bilirubin AST ALT Alkaline Phosphatase Troponin I High Sens Total Protein Albumin Globulin Albumin/Globulin Ratio Lipase SARS-CoV-2 (PCR) NOT DETECTED - Rads (name of study) Single view chest x-ray is unremarkable Relevant Findings:: Final report received, EMP independent interpretation of test PD Medical Decision Making - ED course ED course: 77-year-old gentleman with known history of coronary disease presents with concerning chest pain. On initial arrival he is only in mild pain and after the administration of 5 mg of IV metoprolol his pain is gone. He also received here and 324 mg of aspirin. He was tachycardic on arrival but this also resolved after the administration of the IV metoprolol. His EKG is nonischemic. CBC reviewed and unremarkable. CMP reviewed and notable for modest hyperglycemia at 376. His troponin was elevated at 100.9, high-sensitivity troponin. Normal for a man would be about 20. [facility] cardiology was called at about 3:10 PM for consult and likely transfer. Again the patient is pain-free at that time. I spoke with the nurse practitioner on-call for Dr. Velásquez who is in the [employer]. She states he was she would be appropriate for transfer and defers to the hospitalist for acceptance. [facility] will call me back with the hospitalist. This was at 4 PM. She recommends a heparin drip in the interim. Accepted by Angelica Barreto at [facility] At 4:48 PM. [place] were completed and he is stable for transfer. - Critical Care Time(min): 40 Time Includes: Direct patient care, Review records, Reassess patient, Document care, Coordinate care, Medical consult, Family consult for tx dec Data interpretation: Labs, Pulse ox Procedures excluded from critical care time: EKG Departure - Departure Disposition: 02 Transfer Acute Care Hosp Clinical Impression: Unstable angina, Elevated troponin Condition: Serious Discharge Date/Time: 12/27/22 18:09
[2022-12-27 14:35] LABS: BASOPHILS % (AUTO) 0.1 %; EOSINOPHILS # (AUTO) 0.1 10^3/uL (0.0-0.7); EOSINOPHILS % (AUTO) 1.2 %; HCT - HEMATOCRIT 43.1 % (42.0-52.0); HGB - HEMOGLOBIN 14.3 g/dL (14.0-18.0); LYMPHOCYTES # (AUTO) 1.7 10^3/uL (1.5-3.5); LYMPHOCYTES % (AUTO) 20.5 %; MEAN CORPUSCULAR HEMOGLOBIN 29.9 pg (27.0-31.0); MEAN CORPUSCULAR HGB CONC 33.2 g/dL (32.0-36.0); MEAN CORPUSCULAR VOLUME 90.2 fL (80.0-94.0); MEAN PLATELET VOLUME 11.1 fL (7.4-11.4); MONOCYTES # (AUTO) 0.8 10^3/uL (0.0-1.0); MONOCYTES % (AUTO) 9.6 %; NEUTROPHILS # (AUTO) 5.7 10^3/uL (1.5-6.6); NEUTROPHILS % (AUTO) 68.2 %; PLT - PLATELET COUNT 201 10^3/uL (130-450); RED BLOOD COUNT 4.78 10^6/uL (4.70-6.10); RED CELL DISTRIBUTION WIDTH 12.8 % (12.0-15.0); WHITE BLOOD COUNT 8.3 x10^3/uL (4.8-10.8)
--- NOTE | 2022-12-27 14:44 | XRAY Report ---
PROCEDURE: Chest 1 View X-Ray INDICATIONS: Chest Pain TECHNIQUE: One view of the chest was acquired. COMPARISON: None. FINDINGS: Surgical changes and devices: Sternotomy changes are noted. Lungs and pleura: No pleural effusions or pneumothorax. Lungs are clear. Mediastinum: Mediastinal contours appear normal. Heart size is normal. Calcification is seen of th e aortic arch. Bones and chest wall: No suspicious bony lesions. Age-appropriate degenerative changes are seen. O verlying soft tissues appear unremarkable. IMPRESSION: No acute portable chest abnormality is seen, with note made of postoperative and degenerative change. Reviewed by: Clemente Soto MD on 12/27/2022 1:43 PM [facility] Approved by: Clemente Soto MD on 12/27/2022 1:43 PM [facility] Station ID: [id number]
[2022-12-27 14:55] LABS: ALBUMIN 3.9 g/dL (3.2-5.5); ALBUMIN/GLOBULIN RATIO 1.3 (1.0-2.2); BILIRUBIN,TOTAL 0.8 mg/dL (0.2-1.0); CALCIUM 9.2 mg/dL (8.5-10.3); CREATININE 1.1 mg/dL (0.6-1.2); POTASSIUM 4.2 mmol/L (3.5-5.0); TOTAL PROTEIN 6.8 g/dL (6.7-8.2)
[2022-12-27] MEDS ORDERED: INSULIN REGULAR HUMAN 300 UNIT/3 ML VIAL IVP STA (15:17)
[2022-12-27] MEDS ORDERED: HEPARIN 25000UNITS/500ML (D5W) 25,000 UNIT/500 ML BAG IV SCH (17:00)
[2022-12-27 17:30] VITALS: BP 145/81
== END 2022-12-27 18:09 | disposition short-term general hospital (02) ==
LOC: ED 14:04
DX: I20.0 Unstable angina (principal); I11.9 Hypertensive heart disease without heart failure; R77.8 Other specified abnormalities of plasma proteins; Z95.1 Presence of aortocoronary bypass graft; I25.2 Old myocardial infarction; Z20.822 Contact with and (suspected) exposure to COVID-19
CPT/HCPCS: 36415; 71045; 80053; 83690; 84484; 85025; 87635; 93005; 96374; 96375; 96376; 99285; 99291; A9270; 85730

== ENCOUNTER 2022-12-27 18:14 | Outpatient (CLI) | payer MEDICARE, OTHER | END 2022-12-27 23:59 | disposition short-term general hospital (02) | LOC: EMS 18:14 | PROVIDERS: ATTEND Emergency Medicine | DX: R07.9 Chest pain, unspecified (principal) | CPT/HCPCS: A0425; A0426 ==

== ENCOUNTER 2023-06-04 11:12 | Outpatient (CLI) | payer MEDICARE, OTHER ==
--- NOTE | 2023-06-04 17:56 | XRAY Report ---
PROCEDURE: Ankle 3 View RT INDICATIONS: RIGHT ANKLE PAIN TECHNIQUE: 3 views of the ankle were acquired. COMPARISON: None. FINDINGS: Bones: No acute fractures or dislocations. Probable remote injury of the medial malleolus. Ankle mor tise is normally aligned. No suspicious bony lesions. Mild osteoarthritic changes. Soft tissues: No tibiotalar joint effusion. Achilles tendon appears normal. Multiple surgical clip s in the medial aspect of the ankle. There is atherosclerotic calcification. IMPRESSION: 1. No acute bony abnormality. 2. Mild osteoarthritis. Reviewed by: Madina Whitman MD on 06/04/2023 5:54 PM PDT Approved by: Madina Whitman MD on 06/04/2023 5:54 PM PDT Station ID: [id number]
== END 2023-06-04 11:13 | disposition home or self-care (01) ==
LOC: DI 11:12
PROVIDERS: ATTEND Podiatrist
DX: M19.071 Primary osteoarthritis, right ankle and foot (principal)

== ENCOUNTER 2023-07-17 13:23 | Outpatient (CLI) | payer MEDICARE, OTHER ==
[2023-07-17 17:47] LABS: BASOPHILS % (AUTO) 0.4 %; EOSINOPHILS # (AUTO) 0.2 10^3/uL (0.0-0.7); EOSINOPHILS % (AUTO) 2.6 %; HCT - HEMATOCRIT 38.9 % (42.0-52.0); HGB - HEMOGLOBIN 12.4 g/dL (14.0-18.0); LYMPHOCYTES # (AUTO) 1.8 10^3/uL (1.5-3.5); LYMPHOCYTES % (AUTO) 24.7 %; MEAN CORPUSCULAR HEMOGLOBIN 29.7 pg (27.0-31.0); MEAN CORPUSCULAR HGB CONC 31.9 g/dL (32.0-36.0); MEAN CORPUSCULAR VOLUME 93.3 fL (80.0-94.0); MEAN PLATELET VOLUME 11.5 fL (7.4-11.4); MONOCYTES # (AUTO) 0.9 10^3/uL (0.0-1.0); MONOCYTES % (AUTO) 12.6 %; NEUTROPHILS # (AUTO) 4.4 10^3/uL (1.5-6.6); NEUTROPHILS % (AUTO) 59.6 %; PLT - PLATELET COUNT 238 10^3/uL (130-450); RED BLOOD COUNT 4.17 10^6/uL (4.70-6.10); RED CELL DISTRIBUTION WIDTH 13.5 % (12.0-15.0); WHITE BLOOD COUNT 7.4 x10^3/uL (4.8-10.8)
[2023-07-17 18:03] LABS: CALCIUM 9.6 mg/dL (8.5-10.3); CREATININE 0.9 mg/dL (0.6-1.3); POTASSIUM 4.5 mmol/L (3.5-4.5)
== END 2023-07-17 13:24 | disposition home or self-care (01) ==
LOC: LAB.N 13:23
PROVIDERS: ATTEND Physician Assistant Medical
DX: I10 Essential (primary) hypertension (principal); I46.9 Cardiac arrest, cause unspecified
CPT/HCPCS: 36415; 80048; 85025

== ENCOUNTER 2023-10-05 10:37 | Outpatient (CLI) | payer MEDICARE, OTHER ==
[2023-10-05 12:02] LABS: BASOPHILS % (AUTO) 0.5 %; EOSINOPHILS # (AUTO) 0.2 10^3/uL (0.0-0.7); EOSINOPHILS % (AUTO) 2.1 %; HCT - HEMATOCRIT 46.5 % (42.0-52.0); HGB - HEMOGLOBIN 15.4 g/dL (14.0-18.0); LYMPHOCYTES # (AUTO) 2.5 10^3/uL (1.5-3.5); LYMPHOCYTES % (AUTO) 30.9 %; MEAN CORPUSCULAR HGB CONC 33.1 g/dL (32.0-36.0); MEAN CORPUSCULAR VOLUME 90.5 fL (80.0-94.0); MEAN PLATELET VOLUME 11.6 fL (7.4-11.4); MONOCYTES # (AUTO) 0.9 10^3/uL (0.0-1.0); MONOCYTES % (AUTO) 11.1 %; NEUTROPHILS # (AUTO) 4.5 10^3/uL (1.5-6.6); NEUTROPHILS % (AUTO) 55.2 %; PLT - PLATELET COUNT 220 10^3/uL (130-450); RED BLOOD COUNT 5.14 10^6/uL (4.70-6.10); RED CELL DISTRIBUTION WIDTH 12.9 % (12.0-15.0); WHITE BLOOD COUNT 8.2 x10^3/uL (4.8-10.8)
[2023-10-05 12:28] LABS: THYROID STIMULATING HORMONE 2.12 uIU/mL (0.34-5.60)
[2023-10-05 12:29] LABS: ESTIMATED AVERAGE GLUCOSE 194 mg/dL (70-100); HEMOGLOBIN A1c% 8.4 % (4.27-6.07)
[2023-10-05 12:39] LABS: ALBUMIN 4.5 g/dL (3.2-5.5); ALBUMIN/GLOBULIN RATIO 1.5 (1.0-2.2); ALKALINE PHOSPHATASE 101 IU/L (42-121); ALT ALANINE AMINOTRANSFERASE 14 IU/L (10-60); AST ASPARTATE AMINOTRANSFERASE 14 IU/L (10-42); BILIRUBIN,TOTAL 0.8 mg/dL (0.2-1.0); BUN - BLOOD UREA NITROGEN 16 mg/dL (6-20); CALCIUM 9.9 mg/dL (8.5-10.3); CARBON DIOXIDE - CO2 28 mmol/L (21-32); CHLORIDE 102 mmol/L (101-111); CHOL/HDL RATIO 4.5 (<5.0); CHOLESTEROL 185 mg/dL; GFR - MDRD 72 (>89); GLUCOSE 143 mg/dL (74-104); HDL CHOLESTEROL 41 mg/dL; LDL CHOLESTEROL,CALCULATED 113 mg/dL; LDL/HDL RATIO 2.8 (<3.6); POTASSIUM 4.4 mmol/L (3.5-4.5); SODIUM 137 mmol/L (135-145); TOTAL PROTEIN 7.6 g/dL (6.4-8.9); TRIGLYCERIDES 155 mg/dL (48-352); VLDL CHOLESTEROL 31 mg/dL
[2023-10-05 19:03] LABS: CREATININE,URINE 32.2 mg/dL
[2023-10-05 19:11] LABS: MICROALBUMIN,URINE < 0.7 mg/dL
== END 2023-10-05 10:38 | disposition home or self-care (01) ==
LOC: LAB.N 10:37
PROVIDERS: ATTEND Physician Assistant Medical
DX: I10 Essential (primary) hypertension (principal); E11.9 Type 2 diabetes mellitus without complications; E78.5 Hyperlipidemia, unspecified
CPT/HCPCS: 36415; 80053; 80061; 82043; 82570; 83036; 83721; 84443; 85025

== ENCOUNTER 2023-10-24 11:11 | Outpatient (CLI) | payer MEDICARE, OTHER | END 2023-10-24 23:59 | disposition critical access hospital (66) | LOC: EMS 11:11 | DX: M54.9 Dorsalgia, unspecified (principal); R42 Dizziness and giddiness; I25.2 Old myocardial infarction; Z95.810 Presence of automatic (implantable) cardiac defibrillator | CPT/HCPCS: A0425; A0429 ==

== ENCOUNTER 2023-10-24 11:15 | Emergency (ER) | payer MEDICARE, OTHER ==
--- NOTE | 2023-10-24 11:27 | ED Physician Documentation ---
PD HPI CHEST PAIN - Stated complaint Stated Complaint: BACK PX - Chief complaint Chief Complaint: Cardiac - History obtained from History obtained from: Patient, EMS (gave ASA and nitro enroute with some easing of the pain.) - History of Present Illness Timing - onset: How many hours ago (1), Today Timing - onset during: Light activity (her was just getting up from resting and noted onset of scapular area pain that was intense. Had similar with SC years ago. Had been to cardiac rehab eval yesterday and was tested on treadmill endurance. [place] okay during that. No apins iwth it.) Timing - details: Abrupt onset, Still present Quality: Aching, Sharp, Like prior ACS, Pain Location: Upper back Improved by: Rest Worsened by: Movement. No: Inspiration, Palpation Associated symptoms: No: Shortness of air, Nausea, Feeling faint / dizzy Recently seen: Clinic (seen at Cardiac Rehab yesterday for first eval, which included treadmill exercise that pt does not usually do. Did not have chest nor back pain during that.) Review of Systems Constitutional: denies: Fever, Chills Cardiac: denies: Palpitations, Pedal edema, Calf pain Respiratory: denies: Cough, Wheezing GI: denies: Abdominal Pain, Nausea, Vomiting PD PAST MEDICAL HISTORY - Past Medical History Past Medical History: Yes Cardiovascular: Hypertension, High cholesterol, Coronary artery disease, [place], Other Respiratory: None Endocrine/Autoimmune: Type 2 diabetes GI: GERD : Kidney stones, Other HEENT: None Psych: None Musculoskeletal: Osteoarthritis, Other Derm: None - Past Surgical History Past Surgical History: Yes General: Colonoscopy Cardiovascular: CABG HEENT: Tonsil/Adenoidectomy - Present Medications Home Medications: Ambulatory Orders Medication Instructions Recorded Confirmed Aspirin 81 mg PO DAILY 12/02/13 12/27/22 Clopidogrel [Plavix] 75 mg PO DAILY 12/02/13 12/27/22 Fenofibrate [Lofibra] 160 mg PO DAILY 12/02/13 12/27/22 Gabapentin [Neurontin] 600 mg PO BID 12/02/13 12/27/22 Insulin Glargine,Hum.rec.anlog 60 units SUBQ DAILY 12/02/13 12/27/22 [Lantus Solostar] Nitroglycerin [Nitrostat] 0.4 mg SL ONCE 12/02/13 12/27/22 lisinopriL [Prinivil] 2.5 mg PO DAILY 12/02/13 12/27/22 Cetirizine [ZyrTEC] 10 mg PO DAILY 05/06/18 12/27/22 Insulin Lispro [Humalog Kwikpen 8 unit SUBQ BID 05/06/18 12/27/22 U-100] Isosorbide Mononitrate ER [Imdur] 30 mg PO DAILY 05/06/18 12/27/22 Fluticasone [Flonase] 1 sprays KIRA BID PRN 10/11/21 12/27/22 - Allergies Allergies/Adverse Reactions: Allergies Allergy/AdvReac Type Severity Reaction Status Date / Time Nfabnzk-VIQ-KaD Reductase Allergy Mild Rash Verified 10/24/23 11:23 Inhibitor [Jyypvic-Dgp-Icm Reductase Inhibitor] evolocumab AdvReac abdominal Verified 10/24/23 11:23 [From Repatha SureClick] pain metformin AdvReac Nausea Verified 10/24/23 11:23 niacin AdvReac body wide Verified 10/24/23 11:23 pain - Social History Does the pt smoke?: No Smoking Status: Never smoker Does the pt drink ETOH?: No Does the pt have substance abuse?: No - Immunizations Immunizations are current?: Yes PD ED PE NORMAL - Vitals Vital signs reviewed: Yes - General General: Alert and oriented X 3, Well developed/nourished - HEENT HEENT: Moist mucous membranes - Cardiac Cardiac: RRR, No murmur - Respiratory Respiratory: No respiratory distress, Clear bilaterally - Abdomen Abdomen: Soft, Non tender - Back Back: No CVA TTP, No spinal TTP - Derm Derm: Normal color, Warm and dry - Extremities Extremities: Normal ROM s pain, No edema, No calf tenderness / cord - Neuro Neuro: Alert and oriented X 3, Normal speech Results - Vitals Vitals: Vital Signs - 24 hr 10/24/23 10/24/23 10/24/23 11:23 11:33 11:49 Temperature 36.8 C Heart Rate 80 72 Respiratory 14 18 Rate Blood Pressure 140/86 H 152/77 H Blood Pressure 134/74 H [Right] O2 Saturation 100 96 10/24/23 10/24/23 10/24/23 11:56 12:26 12:30 Temperature Heart Rate 68 67 66 Respiratory 18 16 14 Rate Blood Pressure 142/78 H 134/76 H 132/78 H Blood Pressure [Right] O2 Saturation 100 96 98 10/24/23 10/24/23 13:00 13:30 Temperature Heart Rate 72 70 Respiratory 18 16 Rate Blood Pressure 114/76 119/79 Blood Pressure [Right] O2 Saturation 100 95 Oxygen O2 Source Room air - EKG (time done) 11:24 EKG releavant findings:: EKG personally interpreted by author of this note. Relevant findings are: Rate: Rate (enter#) (75) Rhythm: NSR [place]: Normal Intervals: LBBB Compare to prior EKG: Unchanged from prior EKG (November 2022) - Labs Labs: Laboratory Tests 10/24/23 10/24/23 10/24/23 11:26 11:33 11:33 WBC 7.1 RBC 5.08 Hgb 14.8 Hct 45.8 MCV 90.2 MCH 29.1 MCHC 32.3 RDW 12.9 Plt Count 212 MPV 10.5 Neut # (Auto) 4.1 Lymph # (Auto) 2.2 [place] # (Auto) 0.7 Eos # (Auto) 0.1 Baso # (Auto) 0.0 Absolute Nucleated RBC 0.00 Nucleated RBC % 0.0 Sodium 136 Potassium 4.5 Chloride 102 Carbon Dioxide 28 Anion Gap 6.0 BUN 14 Creatinine 1.0 Estimated GFR (MDRD) 72 L Glucose 193 H Calcium 9.6 Magnesium Total Bilirubin 0.7 AST 13 ALT 13 Alkaline Phosphatase 104 Troponin I High Sens 15.0 B-Natriuretic Peptide 43 Total Protein 7.2 Albumin 4.3 Globulin 2.9 Albumin/Globulin Ratio 1.5 Lipase < 10 L 10/24/23 11:33 WBC RBC Hgb Hct MCV MCH MCHC RDW Plt Count MPV Neut # (Auto) Lymph # (Auto) [place] # (Auto) Eos # (Auto) Baso # (Auto) Absolute Nucleated RBC Nucleated RBC % Sodium Potassium Chloride Carbon Dioxide Anion Gap BUN Creatinine Estimated GFR (MDRD) Glucose Calcium Magnesium 1.6 L Total Bilirubin AST ALT Alkaline Phosphatase Troponin I High Sens B-Natriuretic Peptide Total Protein Albumin Globulin Albumin/Globulin Ratio Lipase - Rads (name of study) chest xray Relevant Findings:: Prelim report reviewed, EMP independent interpretation of test (no acute process) chest aortic angio Relevant Findings:: Prelim report reviewed (no emboli nor aortic process. ), EMP independent interpretation of test PD Medical Decision Making - ED course Complexity details: reviewed results (normal Trop and unchanged ECG from prior. CXR and angio chest normal. He is not having pain here now. Presume muscular, given the normal testings. ), considered differential (scapular back pain, severe at onset, in elderly patient with CAD and history of HTN. Certain concern for ACS/SC but also CHF, effusions, and concerned for aortic dissect ion/aneurysm. Otherwise could be more simply muscular after doing treadmill exercise for cardiac rehab yesterday (usomg handrail).), d/w patient Departure - Departure Disposition: Home, Self Care Clinical Impression: Back pain, thoracic, Acute thoracic myofascial strain Condition: Stable Record reviewed to determine appropriate education?: Yes Instructions: ED Spasm Back No Trauma Follow-Up: Monica Mckinney PA-C [Primary Care Provider] - Comments: Your test today are normal without any signs of acute heart attack, heart failure, pneumonia, collapsed lung, aortic dissection nor blood clots. At this point I presume the back pain is muscular related to treadmill walking you did yesterday. I would treat it with Tylenol every 4-6 hours if needed for pain, heat to the area and gentle stretching. Continue your other usual medicines. Follow-up with your primary care and it would be okay to continue with cardiac rehab. Forms: PCP List Discharge Date/Time: 10/24/23 14:37
[2023-10-24 11:37] LABS: BASOPHILS % (AUTO) 0.6 %; EOSINOPHILS # (AUTO) 0.1 10^3/uL (0.0-0.7); EOSINOPHILS % (AUTO) 1.5 %; HCT - HEMATOCRIT 45.8 % (42.0-52.0); HGB - HEMOGLOBIN 14.8 g/dL (14.0-18.0); LYMPHOCYTES # (AUTO) 2.2 10^3/uL (1.5-3.5); LYMPHOCYTES % (AUTO) 30.2 %; MEAN CORPUSCULAR HEMOGLOBIN 29.1 pg (27.0-31.0); MEAN CORPUSCULAR HGB CONC 32.3 g/dL (32.0-36.0); MEAN CORPUSCULAR VOLUME 90.2 fL (80.0-94.0); MEAN PLATELET VOLUME 10.5 fL (7.4-11.4); MONOCYTES # (AUTO) 0.7 10^3/uL (0.0-1.0); MONOCYTES % (AUTO) 9.7 %; NEUTROPHILS # (AUTO) 4.1 10^3/uL (1.5-6.6); NEUTROPHILS % (AUTO) 57.7 %; PLT - PLATELET COUNT 212 10^3/uL (130-450); RED BLOOD COUNT 5.08 10^6/uL (4.70-6.10); RED CELL DISTRIBUTION WIDTH 12.9 % (12.0-15.0); WHITE BLOOD COUNT 7.1 x10^3/uL (4.8-10.8)
[2023-10-24] MEDS: KETOROLAC 15 MG/ML VIAL IVP STA (11:44)
[2023-10-24] MEDS: MORPHINE 2 MG/ML CARPUJECT IVP STA (11:45)
[2023-10-24 11:53] LABS: ALBUMIN 4.3 g/dL (3.2-5.5); ALBUMIN/GLOBULIN RATIO 1.5 (1.0-2.2); ALKALINE PHOSPHATASE 104 IU/L (42-121); ALT ALANINE AMINOTRANSFERASE 13 IU/L (10-60); AST ASPARTATE AMINOTRANSFERASE 13 IU/L (10-42); BILIRUBIN,TOTAL 0.7 mg/dL (0.2-1.0); BUN - BLOOD UREA NITROGEN 14 mg/dL (6-20); CALCIUM 9.6 mg/dL (8.5-10.3); CARBON DIOXIDE - CO2 28 mmol/L (21-32); CHLORIDE 102 mmol/L (101-111); GFR - MDRD 72 (>89); GLUCOSE 193 mg/dL (74-104); POTASSIUM 4.5 mmol/L (3.5-4.5); SODIUM 136 mmol/L (135-145); TOTAL PROTEIN 7.2 g/dL (6.4-8.9)
[2023-10-24 11:58] LABS: LIPASE < 10 U/L (11-82)
--- NOTE | 2023-10-24 12:03 | XRAY Report ---
PROCEDURE: Chest 1V INDICATIONS: Chest pain TECHNIQUE: One view of the chest was acquired. COMPARISON: 12/27/2022 FINDINGS: Surgical changes and devices: An AICD can be seen. Sternotomy changes are noted. Lungs and pleura: No pleural effusions or pneumothorax. Lungs are clear. Mediastinum: The aorta is prominent and tortuous. The cardiac contours are within normal limits. Bones and chest wall: No suspicious bony lesions. Age-appropriate degenerative changes are seen. O verlying soft tissues appear unremarkable. IMPRESSION: Portable chest within normal limits for age, similar to the prior. Reviewed by: Clemente Soto MD on 10/24/2023 11:01 AM [facility] Approved by: Clemente Soto MD on 10/24/2023 11:01 AM [facility] Station ID: [id number]
[2023-10-24] MEDS ORDERED: iohexoL-300 100 ML VIAL ONE (12:47)
[2023-10-24] MEDS: iohexoL-300 100 ML VIAL IVP ONE (13:12)
--- NOTE | 2023-10-24 13:33 | CT Report ---
PROCEDURE: Angio Chest INDICATIONS: back/chest pain today/ eval aorta CONTRAST: 80ml omni 300 TECHNIQUE: After the administration of intravenous contrast, 2 mm axial images were acquired from the pulmonary apices to the posterior costophrenic angles during the arterial phase. In addition, 1 mm lung kernel and 5 mm soft tissue kernel reconstructions were performed. 3-dimensional coronal oblique maximum int ensity projection (MIP) reformats, 8 mm axial MIP, and 5 mm coronal and sagittal MPR reformats were t hen performed through the thorax. For radiation dose reduction, the following was used: automated exp osure control, adjustment of mA and/or kV according to patient size. COMPARISON: Correlation is made with the accompanying imaging. Correlation is also made with the ove rlapping portions of the abdomen and pelvis CT, 10/04/2021. FINDINGS: Image quality: There is artifact associated with the metallic hardware. Large vessels: No filling defects within the opacified pulmonary arteries, accounting for motion and contrast timing. No evidence of acute aortic syndrome or aortic aneurysm. Lungs and pleura: No consolidation. No pleural effusions. No pneumothorax. No suspicious pulmonary n odules which require follow up. Mediastinum: An AICD can be seen. Post CABG changes are seen. There is advanced coronary artery priyanka cification seen. Heart size is normal. No pericardial effusion. No large vessel abnormality. No media stinal adenopathy by size criteria. Chest wall and lower neck: Thyroid is unremarkable. No axillary or supraclavicular adenopathy by size . Bones: Sternotomy changes are noted. No aggressive osseous abnormality. Remote bilateral rib fractu res are seen. Age-appropriate degenerative changes are seen. There is accentuated thoracic kyphosis. Upper Abdomen: Unremarkable. IMPRESSION: No pulmonary embolus. No acute pulmonary abnormality is seen. Additional findings: AICD Sternotomy with CABG Remote bilateral rib fractures Advanced coronary artery calcification Reviewed by: Clemente Soto MD on 10/24/2023 12:32 PM [facility] Approved by: Clemente Soto MD on 10/24/2023 12:32 PM [facility] Station ID: [id number]
[2023-10-24 13:56] VITALS: BP 119/79; O2SAT 95
== END 2023-10-24 14:37 | disposition home or self-care (01) ==
LOC: ED 11:15
DX: S29.012A Strain of muscle and tendon of back wall of thorax, initial encounter (principal); X58.XXXA Exposure to other specified factors, initial encounter; I10 Essential (primary) hypertension; E78.00 Pure hypercholesterolemia, unspecified; E11.9 Type 2 diabetes mellitus without complications; I25.2 Old myocardial infarction; Z79.82 Long term (current) use of aspirin; Z79.02 Long term (current) use of antithrombotics/antiplatelets; Z79.899 Other long term (current) drug therapy; Z79.4 Long term (current) use of insulin
CPT/HCPCS: 36415; 71045; 71275; 80053; 83690; 83735; 83880; 84484; 85025; 93005; 96374; 96375; 99283; 99284; Q9967

== ENCOUNTER 2023-10-30 10:40 | Outpatient (CLI) | payer MEDICARE, OTHER ==
[2023-10-30] MEDS ORDERED: DIATRIZOATE MEGLU/DIATRIZO SOD 30 ML BOTTLE PO ONE (10:51)
[2023-10-30] MEDS ORDERED: iohexoL-300 100 ML VIAL ONE (10:51)
[2023-10-30] MEDS: iohexoL-300 100 ML VIAL IVP ONE (12:19)
[2023-10-30] MEDS: DIATRIZOATE MEGLU/DIATRIZO SOD 30 ML BOTTLE PO ONE (12:19)
--- NOTE | 2023-10-30 13:10 | CT Report ---
PROCEDURE: Abdomen/Pelvis W INDICATIONS: RLQ ABD PAIN CONTRAST: 100ml omni 300 TECHNIQUE: After the administration of intravenous contrast, a CT scan of the abdomen and pelvis was performed. Images were recorded and evaluated at appropriate window settings. Reformats: coronal and sagittal. F or radiation dose reduction, the following was used: automated exposure control, adjustment of mA and /or kV according to patient size. COMPARISON: None. FINDINGS: Image quality: Diagnostic Lower chest: Possible nodular area of scarring at the azygos esophageal recess is again seen. No pleu ral effusions. Liver: Possible hepatic steatosis. Gallbladder and biliary system: Unremarkable, nondilated Pancreas: No ductal dilation Spleen: Nonenlarged Adrenals: No discrete nodules Kidneys: No hydronephrosis. No solid renal mass. Vessels and lymph nodes: The main portal vein is patent. There are atherosclerotic calcifications wit hout abdominal aortic aneurysm. No pathologic lymph nodes by size criteria. Prominent upper abdominal lymph nodes again seen, possibly reactive in the setting of possible liver disease, stable from prio r Bowel and peritoneum: No evidence of small bowel obstruction. No pathologic ascites or drainable absc ess. Ascending colon/cecal suture lines are present. No significant inflammation in the region. Body wall: Postsurgical changes. Small fat and possible omentum-containing midline hernia measures up to 2.2 cm at the neck on image 2/83. Pelvis: Possible small fat-containing inguinal hernias. Heterogeneous prostate is not well evaluated on this study. The bladder is unremarkable. Bones: Degenerative findings. No acute or suspicious changes. IMPRESSION: No acute abnormality in the abdomen/pelvis. There are suture lines around the ascending colon/cecum. No abscess or significant inflammation. Ventral midline hernia containing fat and possibly congested omentum. Nonobstructive bowel. There may also be a small right fat-containing inguinal hernia. Other findings above. Reviewed by: Diego Avila MD on 10/30/2023 1:09 PM PST Approved by: Diego Avila MD on 10/30/2023 1:09 PM PST Station ID: [id number]
== END 2023-10-30 10:41 | disposition home or self-care (01) ==
LOC: DI 10:40
PROVIDERS: ATTEND Physician Assistant Medical
DX: K43.9 Ventral hernia without obstruction or gangrene (principal); I70.0 Atherosclerosis of aorta
CPT/HCPCS: 74177; Q9963; Q9967

== ENCOUNTER 2023-11-02 08:00 | Outpatient (CLI) | payer MEDICARE, OTHER ==
[2023-11-02 19:00] LABS: FECAL OCCULT BLOOD (FIT) POSITIVE (NEGATIVE)
== END 2023-11-02 23:59 | disposition home or self-care (01) ==
LOC: LAB.N 08:00
PROVIDERS: ATTEND Physician Assistant Medical
DX: K62.5 Hemorrhage of anus and rectum (principal)
CPT/HCPCS: 82274

== ENCOUNTER 2023-12-28 11:06 | Outpatient (CLI) | payer MEDICARE, OTHER ==
[2023-12-28 18:01] LABS: CALCIUM 10.2 mg/dL (8.5-10.3); CREATININE 1.1 mg/dL (0.6-1.3); POTASSIUM 4.4 mmol/L (3.5-4.5)
[2023-12-28 21:48] LABS: ESTIMATED AVERAGE GLUCOSE 166 mg/dL (70-100); HEMOGLOBIN A1c% 7.4 % (4.27-6.07)
== END 2023-12-28 11:07 | disposition home or self-care (01) ==
LOC: LAB.N 11:06
PROVIDERS: ATTEND Physician Assistant Medical
DX: E11.9 Type 2 diabetes mellitus without complications (principal)
CPT/HCPCS: 36415; 80048; 83036